=== PATIENT | male | born 1960 | race Caucasian/White ===

== ENCOUNTER → 2017-07-06 | Outpatient (CLI) | payer OTHER ==
--- NOTE | 2017-07-06 16:43 | DIAGNOSTIC IMAGING REPORT ---
RIGHT KNEE 1 OR 2 VIEWS ROUTINE CLINICAL HISTORY: Right knee pain. No recent trauma. COMPARISON: None FINDINGS: Alignment of the right knee is anatomic. There is moderate medial compartment joint space narrowing of the right knee. Irregularity of the tibial tubercle with calcific densities projecting over the distal patellar tendon is chronic. There is mild infrapatellar soft tissue swelling. No fracture or suspicious lesion is identified. There is a possible joint effusion. IMPRESSION: 1. No acute fracture. 2. Moderate medial compartment joint space narrowing of the right knee. 3. Possible right knee joint effusion, suboptimally assessed on this exam. 4. Mild infrapatellar soft tissue swelling and calcifications projecting over the distal patellar tendon which are chronic and may reflect old trauma or sequela of repetitive injury. Electronically signed by: Billy Vincent M.D. 07/06/2017 4:42 PM Dictated Date/Time: 07/06/2017 4:40 PM
== END | disposition home or self-care (01) ==
LOC: C.RAD 16:15
PROVIDERS: ATTEND Student in an Organized Health Care Education/Training Program
DX: M25.561 Pain in right knee (principal)

== ENCOUNTER 2019-06-30 21:52 | Inpatient (IN) ==
--- OUTSIDE RECORDS SUMMARY | 2019-06-30 21:55 | External Medical Summary | Continuity of Care Document ---
:1960 Author Name Keyshawn M.DIla Address Unavailable Unavailable , Care Team Providers Name Role Phone Unavailable Unavailable Unavailable PHIL, R Unavailable Unavailable Unavailable Unavailable Unavailable Problems Hypoxia (799.02) (R09.02) Fatigue (780.79) (R53.83) Obstructive sleep apnea (327.23) (G47.33) Obesity (278.00) (E66.9) Ureteral stone (592.1) (N20.1) Hypercholesterolemia (272.0) (E78.00) Chronic obstructive asthma (493.20) (J44.9) Testicular hypofunction (257.2) (E29.1) Kidney stone on left side (592.0) (N20.0) Allergies and Adverse Reactions No Known Drug Allergies (Allergy) Medications Medications not documented Procedures History of Bronchoscopy (Diagnostic) Sta tus: Completed History of Cystoscopy With Insertion Of Ureteral Stent Status: Completed Immunizations Immunizations not documented Family History Unknown Family Member Family history of Diabetes Mellitus (V18.0) Status: Active Comments: Family History Family history of Nephrolithiasis Status: Active Commen ts: Family History Family history of Lung Cancer (V16.1) Status: Active Co mments: Family History Social History - Smoking Status Former smoker Plan of Treatment Planned Observations Planned Goals not documented Results No Known Results Results not documented
[2019-06-30] MEDS ORDERED: ONDANSETRON INJ 2 MG/ML 2 ML VIAL IV STA (22:11)
[2019-06-30] MEDS ORDERED: KETOROLAC TROMETHAMINE 15 MG/ML VIAL IV STA (22:11)
[2019-06-30] MEDS ORDERED: SODIUM CHLORIDE 0.9% 500 ML IV SCH (22:15)
[2019-06-30 22:39] LABS: Basophils # (auto) 0.02 K/uL (0-0.2); Basophils % (auto) 0.3 %; Eosinophils # (auto) 0.14 K/uL (0-0.5); Hematocrit (blood only) 41.8 % (42-52); Hemoglobin 14.9 g/dL (14.0-18.0); Immature Granulocytes # (auto) 0.03 K/uL (0.00-0.02); Immature Granulocytes % (auto) 0.4 %; Lymphocytes # (auto) 2.17 K/uL (1.2-3.4); Lymphocytes % (auto) 31.7 %; Mean Corpuscular Hemoglobin 33.1 pg (25-34); Mean Corpuscular Hgb Conc 35.6 g/dL (32-36); Mean Corpuscular Volume 92.9 fL (80-100); Mean Platelet Volume 9.7 fL (7.4-10.4); Monocytes # (auto) 0.54 K/uL (0.11-0.59); Monocytes % (auto) 7.9 %; Neutrophils # (auto) 3.95 K/uL (1.4-6.5); Neutrophils % (auto) 57.7 %; Platelet Count 194 K/uL (130-400); RDW Coefficient of Variation 13.1 % (11.5-14.5); RDW Standard Deviation 44.6 fL (36.4-46.3); White Blood Count 6.85 K/uL (4.8-10.8)
[2019-06-30 22:44] LABS: Appearance Urine Clear (Clear); Bacteria Urine Automated Negative (Negative); Bilirubin Urine Negative (Negative); Blood Urine 2+ (Negative); Cast Urine Automated 0 /lpf (0-5); Color Urine Yellow; Epithelial Cell Urine Auto 0-5 /lpf (0-5); Glucose Urine UA Negative (Negative); Ketones Urine Negative (Negative); Leukocyte Esterase Urine Negative (Negative); Nitrite Urine Negative (Negative); Protein Urine Negative (Negative); RBC Urine Automated 0-4 /hpf (0-4); Specific Gravity Urine 1.022 (1.000-1.030); Urobilinogen Urine Negative (Negative); WBC Urine Automated 0 /hpf (0-5); pH Urine 5.5 (4.5-7.5)
[2019-06-30 23:16] LABS: Albumin Globulin Ratio 0.9 (0.9-2); Albumin Level 3.6 gm/dl (3.4-5.0); BUN Creatinine Ratio 19.2 (10-20); Bilirubin,Total 0.2 mg/dl (0.2-1); Creatinine Clr Calc Pharmacy 102.2 ml/min; Est GFR (African American) 87.4; Est GFR (Non-African American) 75.4; Potassium 3.7 mmol/L (3.5-5.1); Total Protein 7.6 gm/dl (6.4-8.2)
[2019-06-30] MEDS ORDERED: IOVERSOL 100ml IV PRN (23:28)
--- NOTE | 2019-06-30 23:56 | Emergency Department Note ---
History of Present Illness General Chief complaint: Abdominal Pain Stated complaint: BELLY ACHE ON LT SIDE Time Seen by Provider: 06/30/19 22:02 History of Present Illness Maximum Pain Intensity: 8 This 59-year-old presents to the ER complaining of left lower quadrant pain Location: Left lower quadrant Quality: Achy Severity: Moderate Duration: Tonight Timing: Symptoms started tonight Context: Patient was concerned and came in Modifying factors: better with nothing; worse with nothing Patient states he had kidney stones before but this feels different. Patient denies chest pain, dyspnea, fevers, vomiting, diarrhea, back pain, urinary symptoms, testicular pain or penile pain. Home Medications Home Medications Medication Instructions Recorded Confirmed Type ibuprofen [Advil] 400 mg PO QID PRN 06/30/19 06/30/19 History sertraline [Zoloft] 50 mg PO DAILY 06/30/19 06/30/19 History Allergies Allergy/AdvReac Type Severity Reaction Status Date / Time No Known Allergies Allergy Mild . Unverified 11/03/12 13:20 Past Med/Surg History Medical History Kidney stones Social History Feels Safe at Home: Yes Smoking Status: Former smoker Review of Systems All systems reviewed & are unremarkable except as noted in HPI & below Physical Exam Vital Signs Vital Signs - 24 hr 06/30/19 21:57 06/30/19 23:33 06/30/19 23:34 Temperature 36.8 C Temperature Source Oral Sepsis Recent Fever Within 48 Hours No Sepsis Action Taken by Nursing No Action Required Pulse Rate 88 Pulse Rate [Right Finger] 67 Pulse Rhythm [Right Finger] Pulse Strength [Right Finger] Respiratory Rate 20 20 Respiratory Effort / Characteristics Non-Labored Spontaneous Non-Labored Spontaneous Respiratory Depth Normal Normal Respiratory Pattern Regular Regular Blood Pressure 173/103 H Blood Pressure [Right Arm] 154/99 H Blood Pressure Mean 126 Blood Pressure Mean [Right Arm] 117 Blood Pressure Position Sitting Pulse Oximetry 94 95 98 Oxygen Delivery Method Room Air Room Air Room Air 07/01/19 01:31 Temperature Temperature Source Sepsis Recent Fever Within 48 Hours Sepsis Action Taken by Nursing Pulse Rate Pulse Rate [Right Finger] 60 Pulse Rhythm [Right Finger] Regular Pulse Strength [Right Finger] Normal Respiratory Rate 20 Respiratory Effort / Characteristics Non-Labored Spontaneous Respiratory Depth Normal Respiratory Pattern Blood Pressure Blood Pressure [Right Arm] 130/76 Blood Pressure Mean Blood Pressure Mean [Right Arm] 94 Blood Pressure Position Pulse Oximetry 95 Oxygen Delivery Method Room Air VITALS: Vitals are noted on the nurse's note and reviewed by myself. Vital signs reviewed. GENERAL: White male, in no acute distress, nondiaphoretic, well-developed well- nourished. SKIN: The skin was without rashes, erythema, edema, or bruising. There is no tenting of the skin. Capillary reflex less than 2 seconds. HEAD: Normocephalic atraumatic. EARS: External auditory canals clear, tympanic membranes pearly marino without erythema or effusion bilaterally. EYES: Pupils equal round and reactive to light and accommodation. Conjunctivae without injection, sclerae without icterus. Extraocular movements intact. NOSE: Patent, turbinates without inflammation or discharge. MOUTH: Mucous membranes moist. Pharynx without erythema or exudate. Uvula midline. Airway patent. Tongue does not deviate. NECK: Supple without nuchal rigidity. No lymphadenopathy. No thyromegaly. Cervical spine is nontender. No JVD. HEART: Regular rate and rhythm LUNGS: Clear to auscultation bilaterally without wheezes, rales or rhonchi. No retractions or accessory muscle use. ABDOMEN: Positive bowel sounds x 4. Normal tympanic percussion. Soft, tender to palpation left lower quadrant, without masses or organomegaly. Hurley sign negative. No guarding or rebound tenderness. No CVA tenderness MUSCULOSKELETAL: No muscle atrophy, erythema, or edema noted. NEURO: Patient was alert and oriented to person place and time. Normal sensation to light and sharp touch. No focal neurological deficits. Course Administered Medications Ioversol (Optiray 320 100ml) 93 ml IV ONCE PRN PRN Reason: Interaction Checking Stop: 07/04/19 23:27 Last Admin: 06/30/19 23:28 Dose: 93 ml Documented by: [id number] Discontinued Medications Sodium Chloride (Nss) 500 mls @ 999 mls/hr IV .Q31M MARKUS Stop: 06/30/19 22:45 Last Infusion: 06/30/19 23:27 Dose: 0 mls/hr Documented by: [id number] Admin: 06/30/19 22:34 Dose: 999 mls/hr Documented by: [id number] Ketorolac Tromethamine (Toradol) 10 mg IV NOW STA Stop: 06/30/19 22:12 Last Admin: 06/30/19 22:30 Dose: 10 mg Documented by: [id number] Morphine Sulfate (Morphine Sulfate) 4 mg IV NOW STA Stop: 07/01/19 01:16 Last Admin: 07/01/19 01:32 Dose: 4 mg Documented by: [id number] Ondansetron HCl (Zofran) 4 mg IV NOW STA Stop: 06/30/19 22:12 Last Admin: 06/30/19 22:30 Dose: 4 mg Documented by: [id number] Tamsulosin HCl (Flomax) 0.4 mg PO NOW ONE Stop: 07/01/19 01:16 Last Admin: 07/01/19 01:32 Dose: 0.4 mg Documented by: [id number] Medical Decision Making Medical Records Attestation: I reviewed the patient's medical records. Home Medications Current Medication List: was personally reviewed by me Laboratory Data Attestation: I reviewed the patient's lab results. Result diagrams: 06/30/19 22:31 06/30/19 22:31 Lab Results 06/30/19 06/30/19 06/30/19 Range/Units 22:31 22:31 22:31 WBC 6.85 (4.8-10.8) K/uL RBC 4.50 L (4.7-6.1) M/uL Hgb 14.9 (14.0-18.0) g/dL Hct 41.8 L (42-52) % MCV 92.9 (80-100) fL MCH 33.1 (25-34) pg MCHC 35.6 (32-36) g/dL RDW Std Deviation 44.6 (36.4-46.3) fL RDW Coeff of Giselle 13.1 (11.5-14.5) % Plt Count 194 (130-400) K/uL MPV 9.7 (7.4-10.4) fL Immature Gran % (Auto) 0.4 % Neut % (Auto) 57.7 % Lymph % (Auto) 31.7 % Avery % (Auto) 7.9 % Eos % (Auto) 2.0 % Baso % (Auto) 0.3 % Immature Gran # (Auto) 0.03 H (0.00-0.02) K/uL Neut # (Auto) 3.95 (1.4-6.5) K/uL Lymph # (Auto) 2.17 (1.2-3.4) K/uL Avery # (Auto) 0.54 (0.11-0.59) K/uL Eos # (Auto) 0.14 (0-0.5) K/uL Baso # (Auto) 0.02 (0-0.2) K/uL Sodium 141 (136-145) mmol/L Potassium 3.7 (3.5-5.1) mmol/L Chloride 109 H (98-107) mmol/L Carbon Dioxide 28 (21-32) mmol/L Anion Gap 4.0 (3-11) BUN 20 H (7-18) mg/dl Creatinine 1.06 (0.6-1.4) mg/dl Est Cr Clr Drug Dosing 102.2 ml/min Est GFR ( Amer) 87.4 Est GFR (Non-Af Amer) 75.4 BUN/Creatinine Ratio 19.2 (10-20) Glucose 123 H (70-99) mg/dl Calcium 9.0 (8.5-10.1) mg/dl Total Bilirubin 0.2 (0.2-1) mg/dl AST 19 (15-37) U/L ALT 27 (12-78) U/L Alkaline Phosphatase 115 (45-117) U/L Total Protein 7.6 (6.4-8.2) gm/dl Albumin 3.6 (3.4-5.0) gm/dl Globulin 4.0 (2.5-4.0) gm/dl Albumin/Globulin Ratio 0.9 (0.9-2) Lipase 204 (73-393) U/L Specimen Hemolysis Urine Color Yellow Urine Appearance Clear (Clear) Urine pH 5.5 (4.5-7.5) Ur Specific [place] 1.022 (1.000-1.030) Urine Protein Negative (Negative) Urine Glucose (UA) Negative (Negative) Urine Ketones Negative (Negative) Urine Blood 2+ H (Negative) Urine Nitrite Negative (Negative) Urine Bilirubin Negative (Negative) Urine Urobilinogen Negative (Negative) Ur Leukocyte Esterase Negative (Negative) Urine WBC (Auto) 0 (0-5) /hpf Urine RBC (Auto) 0-4 (0-4) /hpf U Hyaline Cast (Auto) 0 (0-5) /lpf U Epithel Cells (Auto) 0-5 (0-5) /lpf Urine Bacteria (Auto) Negative (Negative) Imaging Data Attestation: I personally reviewed and interpreted this imaging study as follows: MDM Narrative Prior records/ancillary studies reviewed. Triage Nursing notes reviewed. Additional history obtained from the family. The patient's history was concerning for left lower quadrant abdominal pain. Differential diagnosis: Etiologies such as renal colic, appendicitis, diverticulitis, mesenteric ischemia, aortic pathology, infections, inflammatory bowel disease, PUD, biliary pathology, UTI, as well as others were entertained. Physical examination findings: As above. ER treatment provided: Toradol, IV fluids On reassessment the patient felt better. Diagnostic interpretation by me: The labs revealed stable H&H. Urinalysis revealed hematuria. There was no sign of UTI. Imaging studies: CT ABDOMEN & PELVIS With Contrast: Nephrolithiasis with a 7 x 11 mm stone in the proximal left ureter. There is moderate left hydronephrosis and mild perinephric/periureteral stranding. Right inguinal hernia contains fat and a portion of thickened bladder with mild adjacent stranding. Small fat-containing left inguinal hernia also noted. Moderate stool in the colon. Mild rectosigmoid wall thickening likely related to underdistention. Fluid in the distal esophagus, query reflux. Bibasilar atelectasis/pneumonitis. Additional incidental findings. Radiologist: Magda Lopez M.D. Consultation: A consultation was placed with the surgeon, Dr. Flores and states there is nothing surgical to do for the hernia on the CAT scan as the patient is asymptomatic. She recommends outpatient follow-up. I consulted Dr. Blackmon, hospitalist. The case was discussed and diagnostics were reviewed. The patient was evaluated in the ER for further treatment. It appears that the patient has isolated renal colic from a left sided stone. Patient is still moderate amount of pain. Had a very large stone CAT scan. Medicine was consulted. The hernia was reviewed with surgery. They state this is not an emergent need and patient can follow-up outpatient. I reviewed this with the hospitalist. Patient is agreeable to treatment plan of admission. Patient was started on Flomax. He was medicated as above. No UTI. By the evaluation outlined above emergent etiologies such as appendicitis, diverticulitis, mesenteric ischemia, aortic pathology, infections, inflammatory bowel disease, PUD, biliary pathology, UTI, as well as others were deemed relatively unlikely. The pt informed about the findings as listed above. All questions were answered and pleased with the treatment Case reviewed with my attending The chart was completed utilizing [employer] Speech voice recognition software. Grammatical errors, random word insertions, pronoun errors, and incomplete sentences are an occassional consequence of this system due to software limitations, ambient noise, and hardware issues. Any formal questions or concerns about the content, text, or information contained within the body of this dictation should be directly addressed to the physician surgical assistant certified for clarification. Impression & Plan Renal colic on left side, Ureterolithiasis, Intractable pain Discharge Plan Visit Data Chief Complaint: Abdominal Pain Stated Complaint: BELLY ACHE ON LT SIDE ED Provider: [facility] Midlevel Provider: Susan Silva Discharge Problem: Renal colic on left side, Ureterolithiasis, Intractable pain Patient Disposition: Admitted As Inpatient Condition: Good Forms Stand Alone Forms: Call Back Authorization, [facility] Prescriptions Prescriptions: No Action ibuprofen [Advil] 200 mg Tablet 400 mg PO QID PRN (Reason: Pain) RF: 0 sertraline [Zoloft] 50 mg tablet 50 mg PO DAILY RF: 0 Referrals Referrals: Alfred Dominguez DO [Primary Care Provider] -
[2019-07-01] MEDS ORDERED: MoRPHine SULFATE 4 MG/ML 1 ML CARP\\VIAL IV STA (01:15)
[2019-07-01] MEDS ORDERED: TAMSULOSIN HCL 0.4 MG CAP PO ONE (01:15)
--- NOTE | 2019-07-01 02:12 | History & Physical Report ---
Date of Service July 01, 2019 Assessment & Plan (1) Ureterolithiasis: 59-year-old male with history of previous kidney stones, anxiety, depression, sleep apnea on BiPAP, hyperlipidemia presents with left mid abdominal pain which started tonight and progressively got worse. Found to have 7 x 11 mm stone proximal left ureter with moderate hydronephrosis. Ureterolithiasis with moderate hydronephrosis Afebrile, vitals within normal limits No WBC elevation CT abdomen pelvis: Nephrolithiasis 7 x 11 mm stone proximal left ureter, left moderate hydronephrosis and mild perinephric/periureteral stranding UA: 2+ blood BUN/creatinine 20/1 Received: Tramadol, Zofran, normal saline 500 cc, tamsulosin, morphine in the ED Started on Rocephin, tamsulosin, Toradol as needed, Tylenol as needed, IV fluids Urology consulted: Dr. Melara N.p.o. for possible procedure Incidental findings: Inguinal hernias CT abdomen: Right inguinal hernia, containing fat and portion of thickened bladder and mild adjacent stranding; small fat-containing left inguinal hernia Surgery consulted by ED provider who did not recommend any intervention History of ЮЛИЯ Patient uses BiPAP at night Does not have on BiPAP -ordered History of depression/anxiety Continue home Zoloft FEN/GI: No electrolyte abnormalities, n.p.o., LR 125 cc/h DVT prophylaxis: SCDs only encourage ambulation, chemical contraindicated pe nding possible procedure Code: Full per discussion with patient and Disposition: MedSurg (2) Anxiety: (3) History of nephrolithiasis: (4) ЮЛИЯ (obstructive sleep apnea): History of Present Illness Chief Complaint: Left mid abdominal pain Primary Care Provider: Alfred Dominguez DO 59-year-old male with history of previous kidney stones, anxiety, depression, sleep apnea on BiPAP, hyperlipidemia presents with left mid abdominal pain which started tonight and progressively got worse. Reports was driving home after grocery shopping when pain started. Pain described as crampy and was constant, 10 out of 10 until he received pain medication. Denies any fever, chills, nausea, vomiting, diarrhea, constipation, hematochezia, melena, dysuria, urine increased urinary frequency, hematuria, chest pain, shortness of breath, headache, lightheadedness. Last bowel movement was today normal. Of note: History of retrograde urethrogram and left urethral stent in 2012 per records Past surgical history: As above otherwise none Medications: Takes Zoloft Allergies: No known drug allergy Social history: Quit smoking 2003, smoked for 30 years half pack per day, denies alcohol or recreational drug use Family history: Father of massive stroke at age of 80, mother has dementia Allergies Allergy/AdvReac Type Severity Reaction Status Date / Time No Known Allergies Allergy Mild . Unverified 11/03/12 13:20 Home Medications Home Medications Medication Instructions Recorded Confirmed Type ibuprofen [Advil] 400 mg PO QID PRN 06/30/19 06/30/19 History sertraline [Zoloft] 50 mg PO DAILY 06/30/19 06/30/19 History Past Med/Surg History Medical History Kidney stones Social History Preferred Language: Ecuadorean Communication Ability: Effective Senior Research Associate Required: No Beliefs That Will Affect Care: None Current Living Situation: Spouse Feels Safe at Home: Yes Safety Concerns: Feels Safe At This Time Smoking Status: Never smoker Hx Alcohol Use: No Hx Substance Use: No Review of Systems Review of Systems: As per HPI Physical Exam Physical Exam: General: In NAD HEENT: dry oral mucosa Neuro: A&O x 4 Pulm: CTAB equal breath sounds bilaterally CV: RRR, no m/r/g Abdomen:+BS, no TTP in all quadrants, non-distended LE: no LE edema, no calf TTP Results & Data Vital Signs (Past 12 Hours) Vital Signs Temp Pulse Pulse Resp BP BP Pulse Ox 07/01/19 01:31 60 20 130/76 95 06/30/19 23:34 98 06/30/19 23:33 67 20 154/99 H 95 06/30/19 21:57 36.8 C 88 20 173/103 H 94 Laboratory Results Abnormal lab results 06/30/19 06/30/19 06/30/19 Range/Units 22:31 22:31 22:31 RBC 4.50 L (4.7-6.1) M/uL Hct 41.8 L (42-52) % Immature Gran # (Auto) 0.03 H (0.00-0.02) K/uL Chloride 109 H (98-107) mmol/L BUN 20 H (7-18) mg/dl Glucose 123 H (70-99) mg/dl Urine Blood 2+ H (Negative) Medications Administered Current Inpatient Medications Ioversol (Optiray 320 100ml) 93 ml IV ONCE PRN PRN Reason: Interaction Checking Stop: 07/04/19 23:27 Last Admin: 06/30/19 23:28 Dose: 93 ml Documented by: Code Status & VTE Plan Code Status Full VTE Prophylaxis Plan VTE Prophylaxis will be ordered: Yes Supervising Physician Co-Signing Physician Notes Patient seen and examined, chart reviewed, case discussed with Dr. Andrade and I agree with her assessment and plan as documented above. Briefly patient is a 59-year-old male with prior history of renal stones presenting with the same. He has a 7 x 11 mm stone in the proximal left ureter. Pain is well controlled at present. No evidence of UTI On physical exam he is afebrile, hemodynamically stable, no acute distress Some left CVA tenderness Exam otherwise unremarkable Labs and images reviewed. UA with 2+ blood Assessment/plan: 59-year-old male with renal stone Admit to medical floor. IV fluids, Flomax, pain and nausea control Urology consultassistance appreciated Monitor for evidence of hernia incarceration. Consider surgical referral on discharge. Remainder of plan as above PG Care Time/CCT Total # of Minutes Spent Total Time Spent with Patient: Total time spent is greater than 50% in coordination of care (as documented) at patient's floor/unit and/or counseling patient: Resident Activity Tracking Resident Involvement: Resident Care Provided Care Provided: Adult Hospital Medicine
[2019-07-01] MEDS ORDERED: ONDANSETRON INJ 2 MG/ML 2 ML VIAL IV PRN (03:00)
[2019-07-01] MEDS ORDERED: LACTATED RINGER'S 1,000 ML IV SCH (03:00)
[2019-07-01] MEDS ORDERED: KETOROLAC 30 MG/ML VIAL IV PRN (03:00)
[2019-07-01] MEDS ORDERED: SERTRALINE HCL 50 MG TABLET PO SCH (03:00)
[2019-07-01] MEDS ORDERED: ACETAMINOPHEN 325 MG TAB PO PRN (03:00)
[2019-07-01] MEDS ORDERED: POLYETHYLENE (MIRALAX) 17 GM PACK PO PRN (03:00)
[2019-07-01] MEDS ORDERED: cefTRIAXone SODIUM 2,000 MG in DEXTROSE 5% 50 ML IV SCH (03:00)
[2019-07-01] MEDS ORDERED: ALUMINUM/MAGNESIUM SUSP 30 ML UDC PO STA (06:13)
--- NOTE | 2019-07-01 07:23 | CT Scan Report ---
ABDOMEN AND PELVIS CT WITH IV CONTRAST CT DOSE: 1716.38 mGy.cm HISTORY: Left lower quadrant abdominal pain. TECHNIQUE: Multiaxial CT images of the abdomen and pelvis were performed following the use of intrave nous contrast. A dose lowering technique was utilized adhering to the principles of ALARA. COMPARISON STUDY: Abdomen and pelvis CT 11/01/2012. FINDINGS: Left basilar linear densities favor subsegmental atelectasis. No pneumoperitoneum. No pneum atosis. No suspicious lytic or blastic osseous lesions. The liver, gallbladder, pancreas, adrenal gla nds, and right kidney are unremarkable. No retroperitoneal lymphadenopathy. There is a 9 mm stone wit hin the lower pole the left kidney. Mild left hydronephrosis secondary to an obstructing 1 cm stone a t the left ureteropelvic junction. Mild thickening within the right anterior bladder wall which remai ns unchanged. The right anterior bladder is located within the right-sided inguinal hernia. There is a small fat-containing left inguinal hernia. No bowel wall thickening or obstruction. IMPRESSION: 1. A 1 cm obstructing stone within the left ureteropelvic junction resulting in mild left hydronephro sis. 2. Left-sided nephrolithiasis. 3. Thickening of the right anterior bladder which is similar to the prior study. This is located with in the right-sided inguinal hernia. There is also small fat-containing left inguinal hernia. Electronically signed by: Yasmany Villa M.D. 07/01/2019 7:22 AM
[2019-07-01] MEDS ORDERED: TAMSULOSIN HCL 0.4 MG CAP PO SCH (09:00)
[2019-07-01 09:07] LABS: Hematocrit (blood only) 41.8 % (42-52); Hemoglobin 14.5 g/dL (14.0-18.0); Mean Corpuscular Hemoglobin 32.4 pg (25-34); Mean Corpuscular Hgb Conc 34.7 g/dL (32-36); Mean Corpuscular Volume 93.3 fL (80-100); Mean Platelet Volume 9.4 fL (7.4-10.4); Platelet Count 183 K/uL (130-400); RDW Coefficient of Variation 13.1 % (11.5-14.5); RDW Standard Deviation 44.7 fL (36.4-46.3); Red Blood Count 4.48 M/uL (4.7-6.1); White Blood Count 6.73 K/uL (4.8-10.8)
[2019-07-01 09:26] LABS: INR 1.1 (0.9-1.1); Prothrombin Time 11.2 Seconds (9.0-12.0)
[2019-07-01 09:48] LABS: BUN Creatinine Ratio 19.1 (10-20); Calcium 8.9 mg/dl (8.5-10.1); Creatinine Clr Calc Pharmacy 120.4 ml/min; Est GFR (African American) 106.5; Est GFR (Non-African American) 91.9; Potassium 3.9 mmol/L (3.5-5.1)
--- NOTE | 2019-07-01 10:19 | Urology Consultation ---
Date of Consultation July 01, 2019 Assessment & Plan (1) History of nephrolithiasis: (2) Renal colic on left side: A/P 59-year-old male with resolved colic from the left 1 cm ureteropelvic junction stone. Findings reviewed with patient. I suspect his stone has fallen back into the kidney causing abrupt resolution of his colicky pain. We will check a KUB today as well as preoperative chest x-ray and EKG. No recent PSAs notedwe will also check. Seen the size of his stones I suspect that intervention will be required to allow for passage. We will therefore plan on semi-urgent outpatient shockwave lithotripsy to avoid the need for stent placement. Risks and benefits of various forms of management are reviewed, but if the patient is currently asymptomatic would avoid any acute intervention. Patient vocalizes good understanding of the treatment plan. He is to avoid blood thinners or aspirin products until we can arrange for intervention. Will arrange for outpatient follow-up this coming week with possible prompt lithotripsy depending on logistics. Thank you for allowing us to participate in this patient's acute care. Please contact our service with any questions or concerns. Patient should be stable for discharge home later today if he tolerates a p.o. diet and remains asymptomatic. History of Present Illness Reason for Consultation: Left renal stones. Attending Physician: Smita Andres MD History of Present Illness Patient is a pleasant 59-year-old male who I have last seen 6 years ago for left renal stones. He was lost to follow-up at this time after having undergone a lithotripsy with stone fragmentation. He returns for presentation via the emergency room due to recurrent colic on the left-hand side. He has had a CT scan done and the images were personally reviewed. This demonstrates 2 large stones in the left kidney with one at the left ureteropelvic junction, approximately 1 cm in size. He reports that after receiving pain medication in the emergency room his pain resolved completely and has not returned. He is in good spirits this morning. He has not been followed by urology otherwise and is participating in no active stone prevention. Urology consultation is requested for assistance with his inpatient care. Creatinine noted to be within normal limits without other worrisome laboratory findings. Patient has had a ureteral stent in the past which he reports having tolerated well. Allergies Allergy/AdvReac Type Severity Reaction Status Date / Time No Known Allergies Allergy Mild . Unverified 11/03/12 13:20 Home Medications Home Medications Medication Instructions Recorded Confirmed Type ibuprofen [Advil] 400 mg PO QID PRN 06/30/19 06/30/19 History sertraline [Zoloft] 50 mg PO DAILY 06/30/19 06/30/19 History Patient History Medical History Kidney stones Sleep apnea Surgical History H/O lithotripsy H/O lithotripsy S/P ureteral stent placement Status post laser lithotripsy of ureteral calculus Social History Preferred Language: Greenlandic Communication Ability: Effective Toe Laster Required: No Beliefs That Will Affect Care: None Current Living Situation: Spouse Feels Safe at Home: Yes Safety Concerns: Feels Safe At This Time Smoking Status: Never smoker Hx Alcohol Use: No Hx Substance Use: No Review of Systems Constitutional: no fever and no chills Eyes: no diplopia Ear, Nose, Mouth, Throat: no ear trauma Respiratory: no hemoptysis Cardiovascular: no chest pain Gastrointestinal: no constipation Genitourinary: + flank pain (resolved) Integumentary: no acne and no boil Neurologic: no paralysis Psychiatric: no hopelessness Hematologic / Lymphatic: no lymphadenopathy Allergy / Immunological: no tongue swelling Physical Exam Constitutional: well developed and well nourished; no acute distress Eyes: eyes not dysmorphic ENMT: Ears: no external ear abnormality Neck: trachea midline; no anterior neck swelling Respiratory: no respiratory distress and does not use accessory muscles Cardiovascular: Vessels: radial pulses present Gastrointestinal (Abdomen): Inspection/Auscultation: abdomen not distended Percussion/Palpation: abdomen soft; abdomen nontender Musculoskeletal: Head/Neck/Chest: normocephalic and neck supple Skin: normal turgor Neurologic: awake; not obtunded Psychiatric: Orientation: oriented x 3 Lymphatic: no lymphadenopathy Results & Data Vital Signs (Past 12 Hours) Vital Signs Temp Pulse Pulse Resp BP Pulse Ox 07/01/19 07:09 36.3 C L 61 16 138/76 95 07/01/19 03:17 94 H 18 98 07/01/19 02:50 36.3 C L 54 L 16 137/81 98 07/01/19 02:32 58 L 20 134/78 95 07/01/19 01:31 60 20 130/76 95 06/30/19 23:34 98 06/30/19 23:33 67 20 154/99 H 95 Laboratory Results Laboratory Results - last 48 hr 06/30/19 06/30/19 06/30/19 22:31 22:31 22:31 WBC 6.85 RBC 4.50 L Hgb 14.9 Hct 41.8 L MCV 92.9 MCH 33.1 MCHC 35.6 RDW Std Deviation 44.6 RDW Coeff of Giselle 13.1 Plt Count 194 MPV 9.7 Immature Gran % (Auto) 0.4 Neut % (Auto) 57.7 Lymph % (Auto) 31.7 Bonner % (Auto) 7.9 Eos % (Auto) 2.0 Baso % (Auto) 0.3 Immature Gran # (Auto) 0.03 H Neut # (Auto) 3.95 Lymph # (Auto) 2.17 Bonner # (Auto) 0.54 Eos # (Auto) 0.14 Baso # (Auto) 0.02 PT INR Sodium 141 Potassium 3.7 Chloride 109 H Carbon Dioxide 28 Anion Gap 4.0 BUN 20 H Creatinine 1.06 Est Cr Clr Drug Dosing 102.2 Est GFR ( Amer) 87.4 Est GFR (Non-Af Amer) 75.4 BUN/Creatinine Ratio 19.2 Glucose 123 H Calcium 9.0 Total Bilirubin 0.2 AST 19 ALT 27 Alkaline Phosphatase 115 Total Protein 7.6 Albumin 3.6 Globulin 4.0 Albumin/Globulin Ratio 0.9 Lipase 204 Specimen Hemolysis Urine Color Yellow Urine Appearance Clear Urine pH 5.5 Ur Specific Billings 1.022 Urine Protein Negative Urine Glucose (UA) Negative Urine Ketones Negative Urine Blood 2+ H Urine Nitrite Negative Urine Bilirubin Negative Urine Urobilinogen Negative Ur Leukocyte Esterase Negative Urine WBC (Auto) 0 Urine RBC (Auto) 0-4 U Hyaline Cast (Auto) 0 U Epithel Cells (Auto) 0-5 Urine Bacteria (Auto) Negative 07/01/19 07/01/19 07/01/19 08:55 08:55 08:55 WBC 6.73 RBC 4.48 L Hgb 14.5 Hct 41.8 L MCV 93.3 MCH 32.4 MCHC 34.7 RDW Std Deviation 44.7 RDW Coeff of Giselle 13.1 Plt Count 183 MPV 9.4 Immature Gran % (Auto) Neut % (Auto) Lymph % (Auto) Bonner % (Auto) Eos % (Auto) Baso % (Auto) Immature Gran # (Auto) Neut # (Auto) Lymph # (Auto) Bonner # (Auto) Eos # (Auto) Baso # (Auto) PT 11.2 INR 1.1 Sodium 142 Potassium 3.9 Chloride 109 H Carbon Dioxide 27 Anion Gap 6.0 BUN 17 Creatinine 0.90 Est Cr Clr Drug Dosing 120.4 Est GFR ( Amer) 106.5 Est GFR (Non-Af Amer) 91.9 BUN/Creatinine Ratio 19.1 Glucose 98 Calcium 8.9 Total Bilirubin AST ALT Alkaline Phosphatase Total Protein Albumin Globulin Albumin/Globulin Ratio Lipase Specimen Hemolysis Urine Color Urine Appearance Urine pH Ur Specific Billings Urine Protein Urine Glucose (UA) Urine Ketones Urine Blood Urine Nitrite Urine Bilirubin Urine Urobilinogen Ur Leukocyte Esterase Urine WBC (Auto) Urine RBC (Auto) U Hyaline Cast (Auto) U Epithel Cells (Auto) Urine Bacteria (Auto) PG Care Time/CCT Total # of Minutes Spent Total Time Spent with Patient: Total time spent is greater than 50% in coordination of care (as documented) at patient's floor/unit and/or counseling patient:
--- NOTE | 2019-07-01 11:38 | XRay Report ---
KUB HISTORY: Preop. stone COMPARISON: Abdomen and pelvis CT 06/30/2019. FINDINGS: The bowel gas pattern is unremarkable. There are no dilated loops of small bowel to suggest an obstruction. There are 2 adjacent stones within the lower pole the left kidney with the largest measuring 1 cm. No ureteral stones identified. No right renal calculi. No bladder calculi are present . No pneumoperitoneum or pneumatosis. IMPRESSION: 1. Left-sided nephrolithiasis. No ureteral calculi. 2. The 1 cm stone within the left ureteropelvic junction seen the prior study now resides within the lower pole of the left kidney. Electronically signed by: Yasmany Villa M.D. 07/01/2019 11:37 AM
--- NOTE | 2019-07-01 11:39 | XRay Report ---
XR chest 2V routine HISTORY: preop COMPARISON: Chest 11/01/2012. FINDINGS: No pneumothorax. No pleural effusions. Mild diffuse interstitial thickening which appears c hronic. No new focal lung consolidations to suggest pneumonia. No evidence for pulmonary edema. The h eart remains borderline enlarged. Mildly tortuous thoracic aorta. IMPRESSION: Mild chronic interstitial thickening, unchanged. No acute process within the chest. Electronically signed by: Yasmany Villa M.D. 07/01/2019 11:38 AM
--- NOTE | 2019-07-01 15:47 | Discharge Summary ---
Date of Service July 01, 2019 Admission HPI Per Admitting Provider 59-year-old male with history of previous kidney stones, anxiety, depression, sleep apnea on BiPAP, hyperlipidemia presents with left mid abdominal pain which started tonight and progressively got worse. Reports was driving home after grocery shopping when pain started. Pain described as crampy and was constant, 10 out of 10 until he received pain medication. Denies any fever, chills, nausea, vomiting, diarrhea, constipation, hematochezia, melena, dysuria, urine increased urinary frequency, hematuria, chest pain, shortness of breath, headache, lightheadedness. Last bowel movement was today normal. Of note: History of retrograde urethrogram and left urethral stent in 2013 per records Past surgical history: As above otherwise none Medications: Takes Zoloft Allergies: No known drug allergy Social history: Quit smoking 2003, smoked for 30 years half pack per day, denies alcohol or recreational drug use Family history: Father of massive stroke at age of 80, mother has dementia Admission Exam Per Admitting Provider General: In NAD HEENT: dry oral mucosa Neuro: A&O x 4 Pulm: CTAB equal breath sounds bilaterally CV: RRR, no m/r/g Abdomen:+BS, no TTP in all quadrants, non-distended LE: no LE edema, no calf TTP Principal Diagnosis Left Ureter Stone, Left Hydronephrosis Discharge Exam General: Resting comfortably HEENT: NC/AT; PERRLA with EOMI; [place] conjunctiva, MMM. No erythema of posterior pharynx Neck: Supple and nontender Cardiac: RRR Lungs: CTA bilaterally Abdomen: Bowel normoactive X 4; Nontender to palpation Extremities: Warm. No edema present Neuro: No focal weakness Skin: No rash Discharge Data Allergies Allergy/AdvReac Type Severity Reaction Status Date / Time No Known Allergies Allergy Mild . Verified 07/06/19 06:36 Consultations 07/01/19 01:16 ED Decision to Admit Stat 07/01/19 03:00 Consult Urology Routine Ordered Studies 06/30/19 22:11 CT abd pelvis IV con only Urgent 07/01/19 KUB and CXR Hospital Course (1) Ureterolithiasis: 1 cm obstructing stone within left UPJ with mild left hydronephrosis on admission noted of CT A/P. KUB also showed 1 cm stone, now within lower pole of left kidney. Pt. had resolution of pain with Toradol IV; stone also likely passed to kidney leading to resolution of pain. Urology consulted, will discharge and plan for follow up this week for lithotripsy. Pt. will need to return to the ER for increased pain, fever/chills, severe N/V, etc and require inpt procedure. Prescriptions were provided for Flomax, Tramadol at discharge. U/a negative; no indication for abx coverage. (2) Anxiety: Continued home SSRI. (3) History of nephrolithiasis: See above (4) ЮЛИЯ (obstructive sleep apnea): BiPAP qhs. Pt. was stable for discharge to home on 07/01/19. Total Time Total Time Spent Total Time Spent (In Minutes): >30 minutes Total Time Includes: Examination of the Patient, Discharge Planning, Medication Reconciliation, Communication With Other Providers and Other Discharge Plan Discharge Items Patient Disposition: Home - Self-Care Reason For Visit: L UERETERAL CALCULUS AND HYDRONEPHROSIS Discharge Diagnosis: Left Ureter Calculus, Left Hydronephrosis Condition: Good Discharge Goals: Decrease discomfort, Improve disease control, Improve function, Increase independence, Prevent disease and Therapeutic intervention Activity: As commented below Exercise/Sports: Wait until after follow-up appointment Non-emergency contact: Primary Care Provider and Urologist Call non-emergency contact if: you have any medication questions, your symptoms worsen, your pain is not controlled, your pain is worsening, your pain is unusual for you, your pain is concerning for you, you have a fever and your temperature is above 101 Follow-up/Referrals: Alfred Dominguez, [Primary Care Provider] - Diet: Regular Addtl Provider Instructions: 1. Left sided kidney stone * Please take Flomax 0.4 mg daily at home. * Pain control as follows: - Tylenol 650 mg every 4-6 hours for mild pain. - Tramadol 50 mg every 6 hours for moderate to severe pain. * An urgent outpatient follow up will be scheduled with urology for shock wave lithotripsy/stone removal. * Avoid NSAIDs (Ibuprofen, Aleve, Advil, Motrin, etc) and Aspirin at home due to upcoming procedure. * Please call urologist or go to the ER if you develop the following: fever or chills, increased left flank/abdominal pain, severe nausea/vomiting. Prescriptions: New tramadol 50 mg tablet 50 mg PO Q6H PRN (Reason: pain) Qty: 12 RF: 0 Continued sertraline [Zoloft] 50 mg tablet 100 mg PO HS RF: 0 Discontinued ibuprofen [Advil] 200 mg Tablet 400 mg PO QID PRN (Reason: Pain) RF: 0 No Action hydrocodone-acetaminophen 5-325 mg tablet 1 tab PO QID PRN (Reason: pain) Qty: 15 RF: 0 tamsulosin 0.4 mg capsule 0.4 mg PO DAILY Qty: 10 RF: 0 Stand-Alone Forms: Call Back Authorization, My [facility]/Other Patient Handouts: Lithotripsy Shock Wave, Kidney Stones Risk, Kidney Stones Identify, Kidney Stones Prevent Discharge Orders: Discharge Order (Routine); Ordered 07/01/19 Ordered By: Smita Andres Admission Data Admit Date/Time: 07/01/19 02:04 Attending Provider: Smita Andres Admit Provider: Zulema Blackmon Primary Care Provider: Alfred Dominguez Other Providers: Mati Melara I. Service: Surgical Services Other Interventions: Discharge Summary Assessment (RN) Last Done: 07/01/19 13:03 Pending Studies at Discharge: No DC Date/Time DO NOT enter until pt leaves facility: 07/01/19 13:30 Supervising Physician Co-Signing Physician Notes PA Supervision Note: I personally saw and examined the patient. I verified all christina points and agree with DORA Wilson with the following exceptions and/or additions: DOing well, no pain, stone returned to kidney STable for dc to home with close Urology f/u for stone management General: Resting comfortably HEENT: NC/AT; PERRLA with EOMI; Ballplay conjunctiva, MMM. No erythema of posterior pharynx Neck: Supple and nontender Cardiac: RRR Lungs: CTA bilaterally Abdomen: Bowel normoactive X 4; Nontender to palpation Extremities: Warm. No edema present Neuro: No focal weakness Skin: No rash
== END 2019-07-01 13:30 | disposition home or self-care (01) | DRG 694 ==
LOC: ED 21:52 → SUATTDRO 07-01 02:04 → 3W 07-01 02:04
DX: N13.2 Hydronephrosis with renal and ureteral calculous obstruction; F41.9 Anxiety disorder, unspecified; N13.0 Hydronephrosis with ureteropelvic junction obstruction; G47.33 Obstructive sleep apnea (adult) (pediatric); Z99.89 Dependence on other enabling machines and devices; Z79.899 Other long term (current) drug therapy; F32.9 Major depressive disorder, single episode, unspecified; Z87.891 Personal history of nicotine dependence

== ENCOUNTER 2021-04-06 13:37 | Observation (INO) ==
--- NOTE | 2021-04-06 15:04 | Emergency Department Note ---
History of Present Illness General Chief complaint: Abdominal Pain Stated complaint: REFERRED BY MD, ABDOMINAL PAIN Time Seen by Provider: 04/06/21 14:05 History of Present Illness This is a 60-year-old male that presents to emergency department via private vehicle with complaints of "abdominal pain". The patient notes that around 3-4 AM he awoke from sleep today and notes that he felt a "sickness" in his abdomen. He then could not fall asleep for about 1 hour and then was able to fall asleep. He then awoke around 7 AM and notes that he had some abdominal pain just superior to the umbilicus. He also notes he has been experiencing intermittent protrusion/"bulge" from that region intermittently over the past 6 months. He is unsure whether or not the protrusion was present during the pain that he had that awoke him from sleep earlier today. He denies any pain at this current time. He denies any fevers, chills, nausea, vomiting or diarrhea. He does note a decreased appetite. He notes a history of kidney stones. No medicinal allergies. No history of abdominal surgeries. Home Medications Medication Instructions Recorded Confirmed Type sertraline [Zoloft] 100 mg PO HS 06/30/19 04/06/21 History meloxicam 7.5 mg tablet 7.5 mg PO BID PRN #20 tab 03/13/20 04/06/21 Rx buspirone 10 mg PO BID 04/06/21 04/06/21 History Allergies Allergy/AdvReac Type Severity Reaction Status Date / Time No Known Allergies Allergy Mild . Verified 04/06/21 16:34 Past Med/Surg History Medical History (Updated 04/06/21 @ 18:34 by Charly Boyle PA-C) Anxiety Kidney stones Sleep apnea bipap nightly Surgical History H/O lithotripsy History of colonoscopy S/P ureteral stent placement hx Status post laser lithotripsy of ureteral calculus Family History Uncle Family history of diabetes mellitus Father FHx: stroke, Onset Age: 80 Social History Smoking Status: Former smoker Cigarettes Per Day: 1 ppd x30 years; Second Hand Exposure: No; Hx Alcohol Use: No Hx Substance Use: No Preferred Language: Tamazight Communication Ability: Effective Staff Radiation Therapist Required: No Beliefs That Will Affect Care: None Current Living Situation: Spouse and Family Feels Safe at Home: Yes Assistive Devices: BiPap and Glasses Review of Systems A total of 10 systems reviewed and were otherwise negative Physical Exam Vital Signs Vital Signs - 24 hr 04/06/21 13:43 04/06/21 14:59 04/06/21 15:01 Temperature 36.5 C Temperature Source Temporal Artery Scan Pulse Rate 110 H 101 H Pulse Rate [Left Apical] 98 H Pulse Rate from SpO2 Sensor 101 H Pulse Rhythm Regular Pulse Rhythm [Left Apical] Regular Pulse Strength Normal Pulse Strength [Left Apical] Normal Respiratory Rate 20 24 16 Respiratory Effort / Characteristics Non-Labored Spontaneous Non-Labored Spontaneous Respiratory Depth Normal Normal Respiratory Pattern Regular Regular Blood Pressure 120/79 Blood Pressure [Left Arm] 120/79 Blood Pressure Mean 92 Blood Pressure Mean [Left Arm] 92 Blood Pressure Position [Left Arm] Lying Pulse Oximetry 95 91 93 Oxygen Delivery Method Room Air Room Air Sepsis Recent Fever Within 48 Hours No Sepsis New/Unexplained Change in Mental Status No Sepsis Action Taken by Nursing No Action Required 04/06/21 15:30 04/06/21 16:00 04/06/21 17:00 Temperature Temperature Source Pulse Rate 98 H 96 H Pulse Rate [Left Apical] Pulse Rate from SpO2 Sensor 99 H 96 H 90 Pulse Rhythm Pulse Rhythm [Left Apical] Pulse Strength Pulse Strength [Left Apical] Respiratory Rate 21 22 Respiratory Effort / Characteristics Respiratory Depth Respiratory Pattern Blood Pressure 117/86 121/76 125/72 Blood Pressure [Left Arm] Blood Pressure Mean 96 91 89 Blood Pressure Mean [Left Arm] Blood Pressure Position [Left Arm] Pulse Oximetry 94 94 96 Oxygen Delivery Method Sepsis Recent Fever Within 48 Hours Sepsis New/Unexplained Change in Mental Status Sepsis Action Taken by Nursing 04/06/21 17:30 Temperature Temperature Source Pulse Rate Pulse Rate [Left Apical] Pulse Rate from SpO2 Sensor 90 Pulse Rhythm Pulse Rhythm [Left Apical] Pulse Strength Pulse Strength [Left Apical] Respiratory Rate Respiratory Effort / Characteristics Respiratory Depth Respiratory Pattern Blood Pressure 136/82 Blood Pressure [Left Arm] Blood Pressure Mean 100 Blood Pressure Mean [Left Arm] Blood Pressure Position [Left Arm] Pulse Oximetry 96 Oxygen Delivery Method Sepsis Recent Fever Within 48 Hours Sepsis New/Unexplained Change in Mental Status Sepsis Action Taken by Nursing VITAL SIGNS - Vital signs and nursing notes were reviewed. Stable and afebrile. GENERAL -60-year-old male appearing his stated age who is in no acute distress. Communicates well with provider and answers questions appropriately. SKIN - Without rashes. No meningeal or petechial rash. The skin overlying the abdomen is unremarkable. HEAD - NC/AT. EYES - PERRL with EOMI bilaterally. Sclera anicteric. NECK - Neck with FROM. No nuchal rigidity. LUNGS - Chest wall symmetric without accessory muscle use, intercostals retr actions, or central cyanosis. Normal vesicular breath sounds CTA B/L. No wheezes, rales, or rhonchi appreciated. CARDIAC - RRR with S1/S2. No murmur, rubs, or gallops appreciated. ABDOMEN - Abdominal contour normal without pulsations or visible masses. BS normoactive all four quadrants. No tenderness, palpable masses, hepatosplenomegaly, or ascites noted. When the patient attempts to actively sit up and flexes the abdominal musculature there is a protrusion noted in the ventral region of the abdomen just superior to the umbilicus consistent with hernia. This then reduces when the patient is supine and relaxes. EXTREMITIES - No clubbing or peripheral cyanosis. +5/5 strength noted in UE/LE bilaterally. NEUROLOGIC - Cranial nerves II through XII grossly intact. PSYCH - A&Ox3 and cooperates fully with examiner. Pt is very pleasant and interacts well with examiner. Course Administered Medications Discontinued Medications Ioversol (Optiray 320 100ml) 90 ml IV ONCE ONE Stop: 04/06/21 16:09 Last Admin: 04/06/21 16:08 Dose: 1 ml Documented by: [id number] Medical Decision Making Laboratory Data Result diagrams: 04/06/21 14:59 04/06/21 14:59 Lab Results 04/06/21 04/06/21 04/06/21 Range/Units 14:59 14:59 14:59 WBC 18.30 H (4.8-10.8) K/uL RBC 4.75 (4.7-6.1) M/uL Hgb 15.9 (14.0-18.0) g/dL Hct 45.2 (42-52) % MCV 95.2 (80-100) fL MCH 33.5 (25-34) pg MCHC 35.2 (32-36) g/dL RDW Std Deviation 46.1 (36.4-46.3) fL RDW Coeff of Giselle 13.3 (11.5-14.5) % Plt Count 236 (130-400) K/uL MPV 9.9 (7.4-10.4) fL Immature Gran % (Auto) 0.5 % Neut % (Auto) 80.4 % Lymph % (Auto) 11.9 % Catron % (Auto) 6.6 % Eos % (Auto) 0.4 % Baso % (Auto) 0.2 % Neut # (Auto) 14.70 H (1.4-6.5) K/uL Lymph # (Auto) 2.18 (1.2-3.4) K/uL Catron # (Auto) 1.21 H (0.11-0.59) K/uL Eos # (Auto) 0.08 (0-0.5) K/uL Baso # (Auto) 0.04 (0-0.2) K/uL Immature Gran # (Auto) 0.09 H (0.00-0.02) K/uL Sodium 138 (136-145) mmol/L Potassium 3.9 (3.5-5.1) mmol/L Chloride 104 (98-107) mmol/L Carbon Dioxide 26 (21-32) mmol/L Anion Gap 8.0 (3-11) BUN 14 (7-18) mg/dl Creatinine 0.98 (0.6-1.4) mg/dl Est Cr Clr Drug Dosing Not Reportable Est GFR ( Amer) 95.4 ml/min Est GFR (Non-Af Amer) 82.3 ml/min BUN/Creatinine Ratio 14.5 (10-20) Glucose 90 (70-99) mg/dl Lactate 1.8 (0.4-2.0) mmol/L Calcium 9.3 (8.5-10.1) mg/dl Total Bilirubin 0.5 (0.2-1) mg/dl AST 17 (15-37) U/L ALT 32 (12-78) U/L Alkaline Phosphatase 109 (45-117) U/L Troponin I < 0.015 (0-0.045) ng/ml Total Protein 8.5 H (6.4-8.2) gm/dl Albumin 4.0 (3.4-5.0) gm/dl Globulin 4.5 H (2.5-4.0) gm/dl Albumin/Globulin Ratio 0.9 (0.9-2) Lipase 121 (73-393) U/L Urine Color Urine Appearance (Clear) Urine pH (4.5-7.5) Ur Specific [place] (1.000-1.030) Urine Protein (Negative) Urine Glucose (UA) (Negative) Urine Ketones (Negative) Urine Blood (Negative) Urine Nitrite (Negative) Urine Bilirubin (Negative) Urine Urobilinogen (Negative) Ur Leukocyte Esterase (Negative) Urine WBC (Auto) (0-5) /hpf Urine RBC (Auto) (0-4) /hpf U Hyaline Cast (Auto) (0-5) /lpf U Epithel Cells (Auto) (0-5) /lpf Urine Bacteria (Auto) (Negative) COVID-19 Eval Order 04/06/21 04/06/21 Range/Units 15:00 17:19 WBC (4.8-10.8) K/uL RBC (4.7-6.1) M/uL Hgb (14.0-18.0) g/dL Hct (42-52) % MCV (80-100) fL MCH (25-34) pg MCHC (32-36) g/dL RDW Std Deviation (36.4-46.3) fL RDW Coeff of Giselle (11.5-14.5) % Plt Count (130-400) K/uL MPV (7.4-10.4) fL Immature Gran % (Auto) % Neut % (Auto) % Lymph % (Auto) % Catron % (Auto) % Eos % (Auto) % Baso % (Auto) % Neut # (Auto) (1.4-6.5) K/uL Lymph # (Auto) (1.2-3.4) K/uL [place] # (Auto) (0.11-0.59) K/uL Eos # (Auto) (0-0.5) K/uL Baso # (Auto) (0-0.2) K/uL Immature Gran # (Auto) (0.00-0.02) K/uL Sodium (136-145) mmol/L Potassium (3.5-5.1) mmol/L Chloride (98-107) mmol/L Carbon Dioxide (21-32) mmol/L Anion Gap (3-11) BUN (7-18) mg/dl Creatinine (0.6-1.4) mg/dl Est Cr Clr Drug Dosing Est GFR ( Amer) ml/min Est GFR (Non-Af Amer) ml/min BUN/Creatinine Ratio (10-20) Glucose (70-99) mg/dl Lactate (0.4-2.0) mmol/L Calcium (8.5-10.1) mg/dl Total Bilirubin (0.2-1) mg/dl AST (15-37) U/L ALT (12-78) U/L Alkaline Phosphatase (45-117) U/L Troponin I (0-0.045) ng/ml Total Protein (6.4-8.2) gm/dl Albumin (3.4-5.0) gm/dl Globulin (2.5-4.0) gm/dl Albumin/Globulin Ratio (0.9-2) Lipase (73-393) U/L Urine Color Yellow Urine Appearance Clear (Clear) Urine pH 7.0 (4.5-7.5) Ur Specific [place] 1.014 (1.000-1.030) Urine Protein Negative (Negative) Urine Glucose (UA) Negative (Negative) Urine Ketones Negative (Negative) Urine Blood 2+ H (Negative) Urine Nitrite Negative (Negative) Urine Bilirubin Negative (Negative) Urine Urobilinogen Negative (Negative) Ur Leukocyte Esterase Negative (Negative) Urine WBC (Auto) 0 (0-5) /hpf Urine RBC (Auto) 5-10 H (0-4) /hpf U Hyaline Cast (Auto) 0 (0-5) /lpf U Epithel Cells (Auto) 0-5 (0-5) /lpf Urine Bacteria (Auto) Negative (Negative) COVID-19 Eval Order Covid19 at [facility] Imaging Data Radiologist's Impression: Abdomen/Pelvis CT 04/06/21 14:[address] WITH IV CONTRAST CT DOSE: 1672.41 mGy.cm HISTORY: Acute mid abdominal pain mid abd pain, intermittent protrusion ventrally TECHNIQUE: Multiaxial CT images of the abdomen and pelvis were performed foll owing the IV administration of 89 cc of Optiray, A dose lowering technique was utilized adhering to the principles of ALARA. COMPARISON STUDY: CT abdomen and pelvis 06/30/2019 FINDINGS: Mild bibasilar atelectasis. No pneumatosis or pneumoperitoneum. The imaged inferior cardiac chambers are unremarkable. Trace pericardial effusion. The spleen, pancreas, gallbladder, and imaging glands are unremarkable. Hepatic steatosis. Patency of the hepatic and portal veins. 3. Calculated left kidney measure up to 7 mm. No right nephrolithiasis. No ureteral calculi or hydronephrosis. Small fat filled left inguinal hernia. Small to moderate right inguinal hernia contains fat and a portion of the thickened right anterior aspect of the urinary bladder, unchanged from comparison. Mild atherosclerotic plaque of the abdominal aorta. No aneurysm. No adenopathy. No bowel obstruction. There is mild fecal retention. The appendix is dilated and fluid-filled measuring up to 4 mm which are mild wall thickening with mild periappendiceal inflammation. There is a single focus of air within the mid appendix. No evidence of perforation or abscess. Diastases recti. No bowel obstruction or bowel wall thickening. IMPRESSION: 1. Findings compatible with acute uncomplicated appendicitis. No evidence of perforation or abscess. 2. No bowel obstruction. 3. Bilateral inguinal hernias. A portion of the right anterior urinary bladder is again noted extending into the right inguinal hernia. 4. Nonobstructing left nephrolithiasis. 5. Hepatic steatosis. ACT 112: Negative or not required by law. The above report was generated using voice recognition software. It may contain grammatical, syntax or spelling errors. Electronically signed by: Blake Salgado M.D. 04/06/2021 4:48 PM [facility] Narrative Patient was seen and evaluated as above in room A03. Review was performed of emely sing notes and vital signs. After obtaining a thorough history and physical examination the above work up was performed. Patient presents to us today with periumbilical abdominal pain. He does have a reproducible and reducible hernia in the ventral region on exam just superior to the umbilicus. Clinically he appears well. Vital signs stable. Options of care were discussed with the patient. IV access established. Labs were drawn. Leukocytosis 18.30. No significant anemia. No emergent metabolic disturbance. Troponin within normal limits. Urinalysis does not suggest infection. Covid testing pending. EKG was obtained given location of abdominal pain and this reveals normal sinus rhythm rate of 97 bpm. QTc 436. QRS 92. No ST elevation. CT scan results as above. Acute appendicitis noted. I discussed this with the patient as well as the on-call surgery team. They came to e valuate the patient. 2 g of Mefoxin recommended and was ordered. Please refer to further documentation regarding his stay and surgical intervention. While in the department, I personally reevaluated the patient several times and each time the patient was found to be resting comfortably. Case was discussed with the attending physician. GCS: 15 In the evaluation and treatment of this patient the following differential diagnoses were entertained: [place], PE, bowel obstruction, acute appendicitis, cholecystitis, hernia, perforation, among others. Impression & Plan Acute appendicitis, Abdominal pain, acute, periumbilical Discharge Plan Visit Data Chief Complaint: Abdominal Pain Stated Complaint: REFERRED BY MD, ABDOMINAL PAIN ED Provider: [facility] Midlevel Provider: Charly Boyle Discharge Problem: Acute appendicitis, Abdominal pain, acute, periumbilical Patient Disposition: Being Evaluated by Surgeon Condition: Good Forms Stand Alone Forms: My [facility], Virtual Emergency Department, Important Visit Information Prescriptions Prescriptions: No Action meloxicam 7.5 mg tablet 7.5 mg PO BID PRN (Reason: pain) Qty: 20 RF: 0 sertraline [Zoloft] 50 mg tablet 100 mg PO HS RF: 0 buspirone 10 mg Tablet 10 mg PO BID RF: 0 Referrals Referrals: Terri Ann DO [Primary Care Provider] -
[2021-04-06 15:09] LABS: Basophils # (auto) 0.04 K/uL (0-0.2); Basophils % (auto) 0.2 %; Eosinophils # (auto) 0.08 K/uL (0-0.5); Eosinophils % (auto) 0.4 %; Hematocrit (blood only) 45.2 % (42-52); Hemoglobin 15.9 g/dL (14.0-18.0); Immature Granulocytes # (auto) 0.09 K/uL (0.00-0.02); Immature Granulocytes % (auto) 0.5 %; Lymphocytes # (auto) 2.18 K/uL (1.2-3.4); Lymphocytes % (auto) 11.9 %; Mean Corpuscular Hemoglobin 33.5 pg (25-34); Mean Corpuscular Hgb Conc 35.2 g/dL (32-36); Mean Corpuscular Volume 95.2 fL (80-100); Mean Platelet Volume 9.9 fL (7.4-10.4); Monocytes # (auto) 1.21 K/uL (0.11-0.59); Monocytes % (auto) 6.6 %; Neutrophils % (auto) 80.4 %; Platelet Count 236 K/uL (130-400); RDW Coefficient of Variation 13.3 % (11.5-14.5); RDW Standard Deviation 46.1 fL (36.4-46.3); Red Blood Count 4.75 M/uL (4.7-6.1)
[2021-04-06 15:17] LABS: Appearance Urine Clear (Clear); Bacteria Urine Automated Negative (Negative); Bilirubin Urine Negative (Negative); Blood Urine 2+ (Negative); Cast Urine Automated 0 /lpf (0-5); Color Urine Yellow; Epithelial Cell Urine Auto 0-5 /lpf (0-5); Glucose Urine UA Negative (Negative); Ketones Urine Negative (Negative); Leukocyte Esterase Urine Negative (Negative); Nitrite Urine Negative (Negative); Protein Urine Negative (Negative); Specific Gravity Urine 1.014 (1.000-1.030); Urobilinogen Urine Negative (Negative); WBC Urine Automated 0 /hpf (0-5)
[2021-04-06 15:27] LABS: Alanine Aminotransferase 32 U/L (12-78); Aspartate Aminotransferase 17 U/L (15-37); BUN Creatinine Ratio 14.5 (10-20); Blood Urea Nitrogen 14 mg/dl (7-18); Calcium 9.3 mg/dl (8.5-10.1); Carbon Dioxide 26 mmol/L (21-32); Chloride 104 mmol/L (98-107); Est GFR (African American) 95.4 ml/min; Est GFR (Non-African American) 82.3 ml/min; Glucose 90 mg/dl (70-99); Lipase 121 U/L (73-393); Potassium 3.9 mmol/L (3.5-5.1); Sodium 138 mmol/L (136-145)
[2021-04-06 15:31] LABS: Albumin Globulin Ratio 0.9 (0.9-2); Alkaline Phosphatase 109 U/L (45-117); Bilirubin,Total 0.5 mg/dl (0.2-1); Globulin 4.5 gm/dl (2.5-4.0); Total Protein 8.5 gm/dl (6.4-8.2); Troponin I < 0.015 ng/ml (0-0.045)
[2021-04-06] MEDS ORDERED: OPTIRAY 320 100ml IV ONE (16:08)
--- NOTE | 2021-04-06 16:49 | CT Scan Report ---
ABDOMEN AND PELVIS CT WITH IV CONTRAST CT DOSE: 1672.41 mGy.cm HISTORY: Acute mid abdominal pain mid abd pain, intermittent protrusion ventrally TECHNIQUE: Multiaxial CT images of the abdomen and pelvis were performed following the IV administrat ion of 89 cc of Optiray, A dose lowering technique was utilized adhering to the principles of ALARA. COMPARISON STUDY: CT abdomen and pelvis 06/30/2019 FINDINGS: Mild bibasilar atelectasis. No pneumatosis or pneumoperitoneum. The imaged inferior cardiac chambers are unremarkable. Trace pericardial effusion. The spleen, pancreas, gallbladder, and imaging glands a re unremarkable. Hepatic steatosis. Patency of the hepatic and portal veins. 3. Calculated left kidney measure up to 7 mm. No right nephrolithiasis. No ureteral calculi or hydron ephrosis. Small fat filled left inguinal hernia. Small to moderate right inguinal hernia contains fat and a portion of the thickened right anterior aspect of the urinary bladder, unchanged from comparis on. Mild atherosclerotic plaque of the abdominal aorta. No aneurysm. No adenopathy. No bowel obstruction. There is mild fecal retention. The appendix is dilated and fluid-filled measuri ng up to 4 mm which are mild wall thickening with mild periappendiceal inflammation. There is a singl e focus of air within the mid appendix. No evidence of perforation or abscess. Diastases recti. No [place] wel obstruction or bowel wall thickening. IMPRESSION: 1. Findings compatible with acute uncomplicated appendicitis. No evidence of perforation or abscess. 2. No bowel obstruction. 3. Bilateral inguinal hernias. A portion of the right anterior urinary bladder is again noted extendi ng into the right inguinal hernia. 4. Nonobstructing left nephrolithiasis. 5. Hepatic steatosis. ACT 112: Negative or not required by law. The above report was generated using voice recognition software. It may contain grammatical, syntax o r spelling errors. Electronically signed by: Blake Salgado M.D. 04/06/2021 4:48 PM
[2021-04-06] MEDS ORDERED: cefOXitin 2,000 MG/60 ML BAG IV STA (17:00)
--- NOTE | 2021-04-06 17:15 | History & Physical Report ---
Date of Service April 06, 2021 Assessment & Plan (1) Acute appendicitis: This is a 60y M with a PMH of ЮЛИЯ and anxiety who presents to the [facility] ED on 04/06/21 with complaints of abdominal pain that woke him up from his sleep overnight. Workup in the ER with a CT a/p revealed findings consistent with acute appendicitis, no perforation/abscess. WBC 18. Patient afebrile. On exam patient is tender to palpation in the RLQ. Discussed with patient findings and plan is to proceed with surgical intervention. Keep patient NPO with IVF and start pre-op abx. Covid testing has been ordered. We will book patient for a laparoscopic appendectomy today with Dr. Thompson. History of Present Illness Primary Care Provider: Terri Ann DO This is a 60y M with a PMH of ЮЛИЯ and anxiety who presents to the [facility] ED on 04/06/21 with complaints of abdominal pain. Patient states the pain woke up him up in the middle of the night, and started around his christian-umbilical region. He also felt a little stomach upset and overall ill. He drank some water at 7am thinking he was dehydrated, but the pain persisted. In the ER a CT a/p was performed that revealed findings compatible with acute uncomplicated append icitis. No evidence of perforation or abscess. Now the patient reports the pain is more located in the right lower abdominal region. He denies any prior abdominal surgery. He had a prior colonoscopy he reports was unremarkable. Allergies Allergy/AdvReac Type Severity Reaction Status Date / Time No Known Allergies Allergy Mild . Verified 04/06/21 16:34 Home Medications Medication Instructions Recorded Confirmed Type sertraline [Zoloft] 100 mg PO HS 06/30/19 04/06/21 History meloxicam 7.5 mg tablet 7.5 mg PO BID PRN #20 tab 03/13/20 04/06/21 Rx buspirone 10 mg PO BID 04/06/21 04/06/21 History Past Med/Surg History Medical History (Updated 04/06/21 @ 17:07 by Jaylene Avila PA-C) Anxiety Kidney stones Sleep apnea bipap nightly Surgical History H/O lithotripsy History of colonoscopy S/P ureteral stent placement hx Status post laser lithotripsy of ureteral calculus Family History Uncle Family history of diabetes mellitus Father FHx: stroke, Onset Age: 80 Social History Smoking Status: Former smoker Cigarettes Per Day: 1 ppd x30 years; Second Hand Exposure: No; Hx Alcohol Use: No Hx Substance Use: No Preferred Language: Azeri Communication Ability: Effective Neonatal Social Worker Required: No Beliefs That Will Affect Care: None Current Living Situation: Spouse and Family Feels Safe at Home: Yes Assistive Devices: BiPap and Glasses Review of Systems Constitutional: no fever and no chills Respiratory: no dyspnea Cardiovascular: no chest pain Gastrointestinal: + abdominal pain; no vomiting Physical Exam Physical Exam: awake/alert Constitutional: + obese; no acute distress Respiratory: normal respiratory effort Gastrointestinal (Abdomen): Percussion/Palpation: + abdomen tender (ttp in the RLQ) and abdomen soft + diastasis recti Results & Data Results & Data ([facility]) Vital Signs (Past 12 Hours) Vital Signs Temp Pulse Pulse Resp BP Pulse Ox 04/06/21 15:01 98 H 16 120/79 93 04/06/21 13:43 36.5 C 110 H 20 [address] WITH IV CONTRAST CT DOSE: 1672.41 mGy.cm HISTORY: Acute mid abdominal pain mid abd pain, intermittent protrusion ventrally TECHNIQUE: Multiaxial CT images of the abdomen and pelvis were performed followi ng the IV administration of 89 cc of Optiray, A dose lowering technique was utilized adhering to the principles of ALARA. COMPARISON STUDY: CT abdomen and pelvis 06/30/2019 FINDINGS: Mild bibasilar atelectasis. No pneumatosis or pneumoperitoneum. The imaged inferior cardiac chambers are unremarkable. Trace pericardial effusion. The spleen, pancreas, gallbladder, and imaging glands are unremarkable. Hepatic steatosis. Patency of the hepatic and portal veins. 3. Calculated left kidney measure up to 7 mm. No right nephrolithiasis. No ureteral calculi or hydronephrosis. Small fat filled left inguinal hernia. Small to moderate right inguinal hernia contains fat and a portion of the thickened right anterior aspect of the urinary bladder, unchanged from comparison. Mild atherosclerotic plaque of the abdominal aorta. No aneurysm. No adenopathy. No bowel obstruction. There is mild fecal retention. The appendix is dilated and fluid-filled measuring up to 4 mm which are mild wall thickening with mild periappendiceal inflammation. There is a single focus of air within the mid appendix. No evidence of perforation or abscess. Diastases recti. No bowel obstruction or bowel wall thickening. IMPRESSION: 1. Findings compatible with acute uncomplicated appendicitis. No evidence of perforation or abscess. 2. No bowel obstruction. 3. Bilateral inguinal hernias. A portion of the right anterior urinary bladder is again noted extending into the right inguinal hernia. 4. Nonobstructing left nephrolithiasis. 5. Hepatic steatosis. ACT 112: Negative or not required by law. The above report was generated using voice recognition software. It may contain grammatical, syntax or spelling errors. Electronically signed by: Blake Salgado M.D. Supervising Physician Co-Signing Physician Notes Patient seen and examined, labs and imaging reviewed, agree with above. 60-year-old male awoke with periumbilical abdominal pain that is now migrated to his right lower quadrant. On exam he is afebrile with stable vitals. His abdomen is obese with a diastases recti. He is tender to palpation in the right lower quadrant McBurney's point with localized guarding. WBC elevated. CT scan shows uncomplicated acute appendicitis. I personally reviewed the CT scan and agree with the findings. 60-year-old male with acute appendicitis Plan for laparoscopic appendectomy. Preop antibiotics. The risks of the procedure were discussed to include but not limited to bleeding, infection, conversion open, perforated appendix, damage to surrounding structures, normal appendix, need for future more extensive surgeries, and the risk of anesthesia The diagnosis, details of procedure recovery, and plan of care discussed the patient, all questions were answered, the patient expressed understanding agrees the plan of care as stated PG Care Time/CCT Total # of Minutes Spent Total Time Spent with Patient: Total time spent is greater than 50% in coordination of care (as documented) at patient's floor/unit and/or counseling patient: Coding Level of Care Code 42689 Initial Inpt Care Lvl 1 Diagnoses Acute appendicitis K35.80
[2021-04-06] MEDS ORDERED: PROMETHAZINE HCL 6.25 MG in SODIUM CHLORIDE 0.9% 50 ML IV PRN (19:22)
[2021-04-06] MEDS ORDERED: ATROPINE SULFATE 0.1 MG/ML 10ML SYR IV PRN (19:22)
[2021-04-06] MEDS ORDERED: fentaNYL citrate 100 MCG/2 ML VIAL IV PRN (19:22)
[2021-04-06] MEDS ORDERED: ONDANSETRON INJ 2 MG/ML 2 ML VIAL IV PRN ×2 (19:22→21:56)
[2021-04-06] MEDS ORDERED: BUPIVACAINE 0.5 % 5 MG/1 ML MPF 30ML VIAL ONE (19:22)
[2021-04-06] MEDS ORDERED: ePHEDrine sulfate 50 MG/ML AMP IV PRN (19:22)
--- NOTE | 2021-04-06 19:24 | Anesthesiology Consultation ---
Date of Service April 06, 2021 Assessment & Plan (1) Encounter for pre-operative examination: Chart Review Chart Review: Acceptable Risk for Surgery and Patient NOT seen in Pre Admission Testing Consults Requested none ASA [id number] Proposed Anesthesia Anesthesia Type: General (+RSI) Risk / Benefits Reviewed With: PT / POA / Parent / Guardian, Accepts Plan and Informed Consent Obtained History Surgery Operation Date: 04/06/21 10:15 Proposed Procedures p Laparoscopic Appendectomy - Harsha Thompson, DO, FACS Height/Weight Weight: 116.8 kg Allergies Allergy/AdvReac Type Severity Reaction Status Date / Time No Known Allergies Allergy Mild . Verified 04/06/21 16:34 Medications Home Medications Medication Instructions Recorded Confirmed Last Taken sertraline [Zoloft] 100 mg PO HS 06/30/19 04/06/21 04/05/21 meloxicam 7.5 mg tablet 7.5 mg PO BID PRN #20 tab 03/13/20 04/06/21 Unknown buspirone 10 mg PO BID 04/06/21 04/06/21 04/06/21 08:00 NPO Date Last Intake of Fluids: 04/06/21 Time Last Intake of Fluids: 07:00 Date Last Intake of Solids: 04/05/21 Time Last Intake of Solids: 23:30 Past Medical History Medical History Anxiety Kidney stones Sleep apnea bipap nightly Exercise / Class Metabolic Activity II 4-5 Yardwork/Stairs/Walk up hill Past Family History Family History Uncle Family history of diabetes mellitus Father FHx: stroke, Onset Age: 80 Past Surgical History Surgical History H/O lithotripsy History of colonoscopy S/P ureteral stent placement hx Status post laser lithotripsy of ureteral calculus Past Anesthesia History No Hx of Anesthesia Complications and No Family Hx of Anesthesia Complications History of PONV No Hx of PONV and No Hx of Motion Sickness Social History Smoking Status: Former smoker tobacco type: cigarettes Smoking cigarettes per day: 1 ppd x30 years Hx Alcohol Use: No Hx Substance Use: No substance use type: does not use Physical Exam Vital Signs Last Vital Signs Temp 37.9 C H 04/06/21 18:48 Pulse 100 H 04/06/21 18:48 Resp 18 04/06/21 18:48 BP 169/65 H 04/06/21 18:48 Pulse Ox 92 04/06/21 18:48 ENMT Mouth: no dentition abnormality Thyromental Distance: > or= 3.5 Finger Breadths Mallampati Class: III Neck normal visual inspection and + thick neck Respiratory normal respiratory effort Auscultation: lungs clear to auscultation bilaterally Cardiovascular Rate/Rhythm: regular rate and regular rhythm Psychiatric Orientation: alert Lab Results Anesthesia Preop Results Results Anesthesia Widget: WBC 18.30 K/uL (4.8-10.8) H 04/06/21 Hgb 15.9 g/dL (14.0-18.0) 04/06/21 Hct 45.2 % (42-52) 04/06/21 Plt 236 K/uL (130-400) 04/06/21 Na 138 mmol/L (136-145) 04/06/21 K 3.9 mmol/L (3.5-5.1) 04/06/21 Cl 104 mmol/L (98-107) 04/06/21 CO2 26 mmol/L (21-32) 04/06/21 BUN 14 mg/dl (7-18) 04/06/21 Creat 0.98 mg/dl (0.6-1.4) 04/06/21 Glucose Level 90 mg/dl (70-99) 04/06/21 Urine Color Yellow 04/06/21 Urine Appearance Clear (Clear) 04/06/21 Urine pH 7.0 (4.5-7.5) 04/06/21 Urine Specific [place] 1.014 (1.000-1.030) 04/06/21 Urine Protein Negative (Negative) 04/06/21 Urine Glucose (UA) Negative (Negative) 04/06/21 Urine Ketones Negative (Negative) 04/06/21 Urine Blood 2+ (Negative) H 04/06/21 Urine Nitrite Negative (Negative) 04/06/21 Urine Bilirubin Negative (Negative) 04/06/21 Urine Urobilinogen Negative (Negative) 04/06/21 Urine Leukocyte Esterase Negative (Negative) 04/06/21 Urine WBC (Auto) 0 /hpf (0-5) 04/06/21 Urine RBC (Auto) 5-10 /hpf (0-4) H 04/06/21 Urine Hyaline Casts (Auto) 0 /lpf (0-5) 04/06/21 Urine Epithelial Cells (Auto) 0-5 /lpf (0-5) 04/06/21 Urine Bacteria (Auto) Negative (Negative) 04/06/21 COVID-19 PCR NEGATIVE (Negative) 04/06/21 Testing Laboratory Results 04/06/21 14:59 04/06/21 14:59 Urine Color Yellow 04/06/21 15:00 Urine Appearance Clear (Clear) 04/06/21 15:00 Urine pH 7.0 (4.5-7.5) 04/06/21 15:00 Ur Specific [place] 1.014 (1.000-1.030) 04/06/21 15:00 Urine Protein Negative (Negative) 04/06/21 15:00 Urine Glucose (UA) Negative (Negative) 04/06/21 15:00 Urine Ketones Negative (Negative) 04/06/21 15:00 Urine Nitrite Negative (Negative) 04/06/21 15:00 Ur Leukocyte Esterase Negative (Negative) 04/06/21 15:00 Urine WBC (Auto) 0 /hpf (0-5) 04/06/21 15:00 Urine RBC (Auto) 5-10 /hpf (0-4) H 04/06/21 15:00 U Hyaline Cast (Auto) 0 /lpf (0-5) 04/06/21 15:00 U Epithel Cells (Auto) 0-5 /lpf (0-5) 04/06/21 15:00 Urine Bacteria (Auto) Negative (Negative) 04/06/21 15:00
[2021-04-06] MEDS ORDERED: fentaNYL citrate 100 MCG/2 ML VIAL ONE ×3 (19:33→20:29)
--- NOTE | 2021-04-06 20:56 | Operative Report ---
PG Post Operative Report Pre & Post Diagnosis Operation Date: 04/06/21 10:15 Pre-Op Diagnosis: Acute appendicitis Post-Op Diagnosis: Acute appendicitis I identified the patient and participated in the time-out.: Yes Procedure Operation Date: 04/06/21 10:15 Actual Procedures p Laparoscopic Appendectomy(Not Applicable) - Harsha Thompson DO, STEPH Surgeon Harsha Thompson DO, FACS Currency Counter Don Brownlee Estimated Blood Loss 5 Findings Consistent with Post-Op Diagnosis Acute, suppurative, nonperforated appendicitis. Specimens Appendix Anesthesia Type General Complications none Disposition Accompanied Patient To Recovery: No Disposition: Recovery Room Indications 60-year-old male presented with signs symptoms of acute appendicitis was confirmed by CT scan. Plan for laparoscopic appendectomy. The risks of the procedure were discussed, all questions were answered, and the patient agreed to proceed with surgery as planned. Description of Procedure The patient was properly identified, consented, and taken to the operating room where he was placed in the supine position. General endotracheal anesthesia was induced. SCDs and a safety belt were placed. Preoperative antibiotics were administered. A [place] catheter was not placed. The patient's abdomen was prepped and draped in the standard sterile fashion. Surgical timeout was performed and all parties were in agreement that this was the correct patient and procedure to be performed and we continued as planned. A stab incision was made to the left of the umbilicus and a Veress needle was inserted. Saline drop test confirmed entry to the abdomen. The abdomen was insufflated with carbon dioxide to the patient Toller without incident. The abdomen was then entered using a 5 mm 30 degree scope and a 5 mm trocar utilizing the Optiview technique. The camera was then reinserted and the abdomen inspected. No damage from initial trocar placement was noted, no gross abnormalities were noted within the 4 quadrants the abdomen. A 12 mm port was then placed in the left lower quadrant with care not to damage the epigastric vessels, and a 5 mm port was placed in the suprapubic midline with care not to damage the bladder. The patient was placed in Trendelenburg position and rotated towards the left. The small bowel was swept away from the right lower quadrant. The sigmoid colon was quite redundant and actually on the right side of the abdomen. This was swept away to the left side of the abdomen. The cecum was grasped with an atraumatic grasper exposing the appendix. The appendix was moderately inflamed and there was no evidence of perforation. There was some fibrinous exudate along the appendix. There was no fluid in the pelvis. The appendix was partially retrocecal. The white line of Toldt and attachments to the abdominal were taken down using the harmonic scalpel. Once the appendix was freed from the lateral abdominal wall, a window was created between the base of the appendix and the mesoappendix. A osborne loaded endoscopic stapler was then used to divide the appendix at its base. The mesoappendix was then divided using the harmonic scalpel. Hemostasis was good. The appendix was placed in an Endo Catch bag and removed through the left lower quadrant port site. The right lower quadrant and pelvis was irrigated and hemostasis was found to be good. The 12 mm port site fascia was closed with an 0 Vicryl suture utilizing the Moises-Dave device. 5 mm trochars were removed and the abdomen was allowed to collapse. The wound was irrigated, and the skin of all ports was closed with 4-0 Monocryl subcuticular sutures. Dermabond was placed over the wounds. The patient was extubated in the operating room and taken to the PACU where he recovered without apparent incident. All sponge, instrument and needle counts were correct at the conclusion of the procedure. The patient tolerated the procedure well. The physician's administrative library assistant was present and scrubbed for the entire the case. He was critical in positioning the patient, prepping and draping, retraction and exposure, driving the laparoscope, removal of the appendix, closure the incisions, and placement of the dressings. I attest to the content of the Intraoperative Record and any orders documented therein. Any exceptions are noted below.
--- NOTE | 2021-04-06 21:36 | Anesthesiology Progress Note ---
Date of Service April 06, 2021 Anesthesia Post Procedure Vital Signs Vital Signs: Temp Pulse Pulse Pulse Resp BP BP 04/06/21 21:25 36.8 C 95 H 18 04/06/21 21:15 99 H 18 04/06/21 21:05 37.0 C 102 H 18 04/06/21 18:48 37.9 C H 100 H 18 169/65 H 04/06/21 18:30 16 152/90 H 04/06/21 18:00 16 136/85 04/06/21 17:30 136/82 04/06/21 17:00 125/72 04/06/21 16:00 96 H 22 121/76 04/06/21 15:30 98 H 21 117/86 04/06/21 15:01 98 H 16 120/79 04/06/21 14:59 101 H 24 120/79 04/06/21 13:43 36.5 C 110 H 20 BP Pulse Ox 04/06/21 21:25 174/80 H 94 04/06/21 21:15 158/87 H 95 04/06/21 21:05 120/96 95 04/06/21 18:48 92 04/06/21 18:30 04/06/21 18:00 04/06/21 17:30 96 04/06/21 17:00 96 04/06/21 16:00 94 04/06/21 15:30 94 04/06/21 15:01 93 04/06/21 14:59 91 04/06/21 13:43 95 Pain Intensity Upper Abdomen: Pain Intensity: 4 Transfer of Care Handoff Completed per policy Notes Mental Status: alert / awake / arousable Patient Amnestic to Procedure: Yes Nausea / Vomiting: adequately controlled Pain: adequately controlled Airway Patency, RR, SpO2: stable & adequate BP & HR: stable & adequate Hydration State: stable & adequate Anesthetic Complications: no major complications apparent
[2021-04-06] MEDS ORDERED: MoRPHine SULFATE 4 MG/ML 1 ML CARP\\VIAL IV PRN (21:56)
[2021-04-06] MEDS ORDERED: oxyCODONE HCL SOLN 5 MG/5 ML UDC PO PRN (21:56)
[2021-04-06] MEDS ORDERED: LACTATED RINGER'S 1,000 ML IV SCH (22:30)
[2021-04-06] MEDS ORDERED: SERTRALINE HCL 100 MG TABLET PO SCH (22:30)
[2021-04-06] MEDS: ACETAMINOPHEN 1,000 MG/100 ML VIAL IV SCH (22:47)
[2021-04-06] MEDS: busPIRone 5 MG TAB PO SCH (22:48)
--- NOTE | 2021-04-06 23:04 | Electrocardiogram Report ---
Test Reason : Blood Pressure : / mmHG Vent. Rate : 097 BPM Atrial Rate : 097 BPM P-R Int : 178 ms QRS Dur : 092 ms QT Int : 344 ms P-R-T Axes : 049 -53 020 degrees QTc Int : 436 ms Normal sinus rhythm Left anterior fascicular block Minimal voltage criteria for LVH, may be normal variant Poor R wave progression, consider anterior MD vs. lead placement vs. LVH Abnormal ECG When compared with ECG of 01-JUL-2019 10:25, Vent. rate has increased BY 40 BPM Left anterior fascicular block is now Present Confirmed by Carlton Heath ([id number]) on 04/06/2021 11:04:00 PM Referred By: Terri Ann Confirmed By:Carlton Heath
[2021-04-06] MEDS: cefOXitin 2,000 MG in DEXTROSE 5% 50 ML IV SCH (23:12)
[2021-04-07] MEDS: cefOXitin 2,000 MG in DEXTROSE 5% 50 ML IV SCH ×2 (04:23→09:53)
[2021-04-07] MEDS: ACETAMINOPHEN 1,000 MG/100 ML VIAL IV SCH (06:11)
[2021-04-07] MEDS: busPIRone 5 MG TAB PO SCH (09:02)
--- NOTE | 2021-04-07 09:24 | Surgery Progress Note ---
Date of Service April 07, 2021 Assessment & Plan (1) Acute appendicitis: POD#1 laparoscopic appendectomy Patient overall progressing as expected Tolerating clear liquids, okay to advance as tolerates Pain manageable on current regimen Incisions c/d/i Stable for discharge to home today; dispo instructions provided. Follow up with Dr. Thompson in clinic within 1-2 weeks Admission and Anticipated Discharge Date Admission Date: April 06, 2021 Supervising Physician Co-Signing Physician Notes Patient seen and examined, agree with above. POD #1 laparoscopic appendectomy. He feels much better this morning. He has some discomfort in his left lower quadrant port site incision which is a 12 mm port site. Otherwise he has tolerated a small diet, and his pain that he had prior to surgery are gone. On exam he is afebrile with stable vitals. His abdomen is soft, appropriately tender to palpation, with incisions that are clean dry and intact with no evidence of infection. Plan to discharge to home. Follow-up in 2 weeks with me in the office. Wound care instructions and activity restrictions reviewed. Return precautions given. Subjective Patient says "all things considered, I am feeling well". Says he has some pain, made worse with certain movements, but it has been manageable. He is on a clear liquid diet, tolerating well. No nausea/vomiting. He tells me he really wants to eat a [employer] burrito. Physical Exam Physical Exam: awake/alert Constitutional: no acute distress Respiratory: normal respiratory effort Gastrointestinal (Abdomen): Inspection/Auscultation: + abdominal surgical incision (c/d/i with dermabond overtop) Percussion/Palpation: + abdomen tender (some christian-incisional ttp ) and abdomen soft Results & Data ([facility]) Vital Signs (Past 12 Hours) Vital Signs Temp Pulse Pulse Pulse Pulse Resp BP 04/07/21 07:08 36.4 C L 67 16 132/64 04/07/21 03:53 36.9 C 79 18 132/72 04/07/21 03:36 82 15 04/07/21 01:02 37.1 C 80 18 118/72 04/07/21 00:30 89 22 04/06/21 23:56 37.0 C 80 16 122/73 04/06/21 22:50 36.5 C 86 14 134/78 04/06/21 22:30 36.9 C 85 14 132/83 04/06/21 21:50 37.3 C 88 14 137/80 04/06/21 21:35 89 16 165/78 H 04/06/21 21:25 36.8 C 95 H 18 174/80 H Pulse Ox 04/07/21 07:08 93 04/07/21 03:53 95 04/07/21 03:36 92 04/07/21 01:02 93 04/07/21 00:30 94 04/06/21 23:56 94 04/06/21 22:50 94 04/06/21 22:30 92 04/06/21 21:50 91 04/06/21 21:35 97 04/06/21 21:25 94 PG Care Time/CCT Total # of Minutes Spent Total Time Spent with Patient: Total time spent is greater than 50% in coordination of care (as documented) at patient's floor/unit and/or counseling patient: Coding Level of Care Code None Diagnoses Acute appendicitis K35.80
--- NOTE | 2021-04-08 10:15 | Discharge Summary ---
Date of Service April 08, 2021 Admission HPI Per Admitting Provider This is a 60y M with a PMH of ЮЛИЯ and anxiety who presents to the [facility] ED on 04/06/21 with complaints of abdominal pain. Patient states the pain woke up him up in the middle of the night, and started around his christian-umbilical region. He also felt a little stomach upset and overall ill. He drank some water at 7am thinking he was dehydrated, but the pain persisted. In the ER a CT a/p was performed that revealed findings compatible with acute uncomplicated appendicitis. No evidence of perforation or abscess. Now the patient reports the pain is more located in the right lower abdominal region. He denies any prior abdominal surgery. He had a prior colonoscopy he reports was unremarkable. Principal Diagnosis acute appendicitis Discharge Exam awake/alert Constitutional no acute distress Respiratory normal respiratory effort Gastrointestinal (Abdomen) Inspection/Auscultation: + abdominal surgical incision (c/d/i with dermabond overtop) Percussion/Palpation: + abdomen tender (mild christian-incisional ttp) and abdomen soft Discharge Data Allergies Allergy/AdvReac Type Severity Reaction Status Date / Time No Known Allergies Allergy Mild . Verified 04/06/21 16:34 Procedures Performed Operation Date: 04/06/21 10:15 Actual Procedures p Laparoscopic Appendectomy(Not Applicable) - Harsha Thompson, , FACS Ordered Studies 04/06/21 14:17 CT abd pelvis IV con only Stat Hospital Course (1) Acute appendicitis: This is a 60y M with a PMH of ЮЛИЯ and anxiety who presents to the [facility] ED on 04/06/21 with complaints of abdominal pain. Workup in the ER with a CT a/p revealed findings concerning for acute appendicitis. Patient tender in the RLQ and WBC 18. Plan was made to proceed with surgical intervention. He was taken to the OR with Dr. Thompson on 04/06/21 for a laparoscopic appendectomy. The patient tolerated the procedure well, see op note for full details. The patient recovered in the PACU and was transferred to the med/surg unit in stable condition for overnight observation. He continued on post op abx and was given a clear liquid diet. On POD#1 patient's diet was advanced as tolerated. He had some christian-incisional pain that was managed with prn medications. Incisions c/d/i. He was voiding on his own without issue. The patient was deemed stable for discharge to home with plans to follow up in clinic within 1- [address] Thompson. Total Time Total Time Spent Total Time Spent (In Minutes): 10 Discharge Plan Discharge Items Patient Disposition: Home - Self-Care Reason For Visit: APPY Discharge Diagnosis: laparoscopic appendectomy Condition on Discharge: Good Activity: Per Instructions section Lifting: No more than 10 pounds Bathing Comment: may shower; no soaking in tubs/pools Exercise/Sports: Wait until after follow-up appointment Driving/Machine Use: wait at least 3 days; no driving while taking narcotics for pain Non-emergency contact: Surgeon Call non-emergency contact if: you have any medication questions, your symptoms worsen, your pain is not controlled, your pain is worsening, your pain is unusual for you, your pain is concerning for you, you have a fever, your temperature is above 101.5, your wound has increased redness and your wound has increased drainage Follow-up/Referrals: Harsha Thompson DO, FACS [Physician] - 04/20/21 9:00 am () Terri Ann DO [Primary Care Provider] - Diet: Regular Addtl Attending Provider Instructions: Addtl Pulpit Operator Provider Instructions: You have been prescribed a narcotic called Percocet to take if needed for moderate-severe pain. Do not take Percocet concurrently with Tylenol as they both contain Acetaminophen, and you should not exceed >3grams of Acetaminophen within a 24 hour time period. If you are not taking the Percocet for pain, you may take Tylenol for pain. Pending Studies at Discharge: Yes Studies:: surgical pathology Stand-Alone Forms: [facility], Opioid Pain Management, Smoking Cessation Medications and DC Order Prescriptions: New oxycodone-acetaminophen [Percocet] 5-325 mg tablet 1 - 2 tab PO .q4-6h PRN (Reason: pain, for initial therapy, max 6 tabs per day) Qty: 12 RF: 0 Continued meloxicam 7.5 mg tablet 7.5 mg PO BID PRN (Reason: pain) Qty: 20 RF: 0 sertraline [Zoloft] 50 mg tablet 100 mg PO HS RF: 0 buspirone 10 mg Tablet 10 mg PO BID RF: 0 Discharge Orders: Discharge Order (Routine); Ordered 04/07/21 Ordered By: Jaylene Ackerman/Other Patient Handouts: DVT Post Op Prevention Admission Data Admit Date/Time: 04/06/21 20:55 Attending Provider: Harsha Thompson Admit Provider: Chinedu Brownlee Primary Care Provider: Treri Ann Other Interventions: Discharge Summary Assessment (RN) Last Done: 04/07/21 10:54 Coding Level of Care Code D/C Day Management <30 mins Diagnoses Acute appendicitis K35.80
== END 2021-04-07 12:48 | disposition home or self-care (01) ==
LOC: ED 13:37 → 3N 13:37

== ENCOUNTER 2021-08-19 19:59 | Observation (INO) ==
[2021-08-19 20:28] LABS: Basophils # (auto) 0.05 K/uL (0-0.2); Basophils % (auto) 0.5 %; Eosinophils # (auto) 0.24 K/uL (0-0.5); Eosinophils % (auto) 2.2 %; Hematocrit (blood only) 45.8 % (42-52); Immature Granulocytes # (auto) 0.14 K/uL (0.00-0.02); Immature Granulocytes % (auto) 1.3 %; Lymphocytes # (auto) 3.11 K/uL (1.2-3.4); Lymphocytes % (auto) 28.9 %; Mean Corpuscular Hemoglobin 33.3 pg (25-34); Mean Corpuscular Hgb Conc 34.9 g/dL (32-36); Mean Corpuscular Volume 95.4 fL (80-100); Mean Platelet Volume 9.5 fL (7.4-10.4); Monocytes # (auto) 0.88 K/uL (0.11-0.59); Monocytes % (auto) 8.2 %; Neutrophils # (auto) 6.33 K/uL (1.4-6.5); Neutrophils % (auto) 58.9 %; Platelet Count 218 K/uL (130-400); RDW Coefficient of Variation 13.5 % (11.5-14.5); RDW Standard Deviation 46.8 fL (36.4-46.3); White Blood Count 10.75 K/uL (4.8-10.8)
[2021-08-19 20:31] LABS: Appearance Urine Clear (Clear); Bacteria Urine Automated Negative (Negative); Bilirubin Urine Negative (Negative); Blood Urine 2+ (Negative); Cast Urine Automated 0 /lpf (0-5); Color Urine Yellow; Epithelial Cell Urine Auto 0-5 /lpf (0-5); Glucose Urine UA Negative (Negative); Ketones Urine Negative (Negative); Leukocyte Esterase Urine Negative (Negative); Nitrite Urine Negative (Negative); Protein Urine Negative (Negative); RBC Urine Automated 0-4 /hpf (0-4); Specific Gravity Urine 1.021 (1.000-1.030); Urobilinogen Urine Negative (Negative); pH Urine 5.5 (4.5-7.5)
[2021-08-19 20:44] LABS: Albumin Level 4.2 gm/dl (3.4-5.0); BUN Creatinine Ratio 18.8 (10-20); Calcium 9.5 mg/dl (8.5-10.1); Creatinine Clr Calc Pharmacy 82.8 ml/min; Est GFR (African American) 68.6 ml/min; Est GFR (Non-African American) 59.2 ml/min; Potassium 4.2 mmol/L (3.5-5.1)
[2021-08-19 20:47] LABS: Albumin Globulin Ratio 0.9 (0.9-2); Bilirubin,Total 0.4 mg/dl (0.2-1); Globulin 4.8 gm/dl (2.5-4.0)
[2021-08-19] MEDS ORDERED: ONDANSETRON INJ 2 MG/ML 2 ML VIAL IV STA (21:37)
[2021-08-19] MEDS ORDERED: KETOROLAC TROMETHAMINE 15 MG/ML VIAL IV STA (21:37)
[2021-08-19] MEDS ORDERED: SODIUM CHLORIDE 0.9% 1000ML 1,000 ML IV ONE (21:37)
[2021-08-19] MEDS ORDERED: OPTIRAY 320 125ml IV ONE (22:19)
[2021-08-19] MEDS ORDERED: MoRPHine SULFATE 4 MG/ML 1 ML CARP\\VIAL IV STA (23:36)
--- NOTE | 2021-08-20 00:30 | History & Physical Report ---
Date of Service August 20, 2021 Assessment & Plan (1) Nephrolithiasis: Plan: 61yo male presenting with left sided nephrolithiasis with hydroureteronephrosis. Patient with considerable pain, 8/10 after receiving IV Dilaudid. Has history of stones, has seen Urology in the past. Stone is 5mm at left ureterovesicular junction - hopefully will be able to pass. -Admit to medical -Strain urine -Pain control with Tylenol, Toradol and Morphine PRN -Zofran PRN -Flomax 0.4mg po x 1 now. -Urology consultation appreciated (2) Anxiety: Plan: Chronic. Stable -Continue Sertaline and Buspirone at home doses (3) ЮЛИЯ (obstructive sleep apnea): Plan: Chronic. Patient reports compliance with his home BiPAP - 17/09 qHS -Nocturnal BiPAP Plan: F/E/N - LR at 125mL/hr x 2 liters, electrolytes WNL, NPO for now except meds/chips/sips Ppx - SCDs Code - Full Dispo - Admit to medical History of Present Illness Chief Complaint: Left sided abdominal/flank pain Primary Care Provider: DO Abraham Cade Jason is a pleasant 61yo male presenting with left sided flank and abdominal pain. Pain began suddenly this afternoon after a nap. Left lower abdominal discomfort, 10/10 in severity. Pain progressed throughout the evening. Associated with nausea and 8-9 episodes of non-bloody/non-bilious vomiting and dry heaving, chills. He denies fever, chest pain, palpitations, diarrhea. Has some baseline SOB which is stable and unchanged. No additional complaints at this time. He is urinating without difficulty. ER Course: Toradol 15mg IV, Morphine 4mg IV, Zofran 4mg IV, NSS Allergies Allergy/AdvReac Type Severity Reaction Status Date / Time No Known Allergies Allergy Mild . Verified 08/19/21 21:17 Home Medications Medication Instructions Recorded Confirmed Type buspirone 10 mg tablet 10 mg PO BID 04/06/21 08/19/21 History multivitamin 1 tab PO DAILY 04/20/21 08/19/21 History Juice Plus-Gold Tab 1 tab PO BID 08/19/21 08/19/21 History Juice Plus-Fruit Tab 1 tab PO BID 08/19/21 08/19/21 History Juice Plus-Veggie Tab 1 tab PO BID 08/19/21 08/19/21 History acetaminophen 500 mg tablet 1,000 mg PO BID 08/19/21 08/19/21 History (Tylenol Extra Strength) lisinopril 2.5 mg tablet 2.5 mg PO DAILY 08/19/21 08/19/21 History meloxicam 15 mg tablet 15 mg PO DAILY 08/19/21 08/19/21 History etqanobcsjhj-dhl-qduwq acid-vit 1 tab PO DAILY 08/19/21 08/19/21 History K-lycop 400 mcg-20 mcg-370 mcg tablet (One-A-Day Men's 50 Plus) sertraline 100 mg tablet 300 mg PO HS 08/19/21 08/19/21 History Past Med/Surg History Medical History (Updated 08/20/21 @ 00:26 by Zulema Blackmon DO) Anxiety History of nephrolithiasis Sleep apnea bipap nightly Ureterolithiasis Surgical History (Updated 04/20/21 @ 09:47 by Harsha Thompson DO, FACS) H/O lithotripsy History of colonoscopy History of laparoscopic appendectomy Laparoscopic appendectomy 04/06/2021 Dr. Thompson S/P ureteral stent placement hx Status post laser lithotripsy of ureteral calculus Family History Uncle Family history of diabetes mellitus Father FHx: stroke, Onset Age: 80 Social History Smoking Status: Never smoker Cigarettes Per Day: 1 ppd x30 years; Second Hand Exposure: No; Hx Alcohol Use: No Hx Substance Use: No Preferred Language: Solomon Islander Communication Ability: Effective Supervisor Billposting Required: No Beliefs That Will Affect Care: None Current Living Situation: Family Current Living Situation Comment: , daughter Feels Safe at Home: Yes Assistive Devices: Glasses Review of Systems Review of Systems: All systems reviewed & are unremarkable except as noted in HPI & below Physical Exam Physical Exam: General: patient resting comfortably, NAD, non-toxic in appearance, AA&O x 4 Skin: warm, dry, intact, no rashes or lesions HEENT: NC/AT, PERRL, EOMI, anicteric sclera, conjunctiva without injection, external ear normal to inspection and nontender, nares patent, moist mucus membranes, dentition intact, no oropharyngeal lesions, neck supple, trachea midline, no LAD, no thyromegaly, no JVD Heart: +S1/S2, regular, no m/r/g Lungs: equal air entry bilaterally, no rales/rhonchi/wheezes Abd: +BS, soft, LLQ tenderness without rebound/guarding/peritoneal signs, no masses/organomegaly/ascites Ext: warm, 2+ pulses in UE/LE bilaterally, no clubbing/cyanosis or edema Neuro: nonfocal, patient AA&O x 4, speech intact, no facial droop, moving all extremities on command with equal strength 5/5 Results & Data Results & Data ([facility]) Vital Signs (Past 12 Hours) Vital Signs Temp Pulse Pulse Resp BP BP Pulse Ox 08/19/21 22:40 78 16 95 08/19/21 22:30 82 15 87 L 08/19/21 22:24 82 22 90 08/19/21 22:00 75 20 99 08/19/21 21:50 81 20 99 08/19/21 21:40 86 18 08/19/21 21:30 87 14 98 08/19/21 21:20 85 19 100 08/19/21 21:10 78 16 98 08/19/21 21:08 81 82 21 188/90 H 99 08/19/21 20:02 36.1 C L 83 28 H 184/124 H 94 Laboratory Results Laboratory Results WBC 10.75 K/uL (4.8-10.8) 08/19/21 20:23 RBC 4.80 M/uL (4.7-6.1) 08/19/21 20:23 Hgb 16.0 g/dL (14.0-18.0) 08/19/21 20:23 Hct 45.8 % (42-52) 08/19/21 20:23 MCV 95.4 fL (80-100) 08/19/21 20:23 MCH 33.3 pg (25-34) 08/19/21 20:23 MCHC 34.9 g/dL (32-36) 08/19/21 20:23 RDW Std Deviation 46.8 fL (36.4-46.3) H 08/19/21 20:23 RDW Coeff of Giselle 13.5 % (11.5-14.5) 08/19/21: Plt Count 218 K/uL (130-400) 08/19/21: MPV 9.5 fL (7.4-10.4) 08/19/21: Immature Gran % (Auto) 1.3 % 08/19/21: Neut % (Auto) 58.9 % 08/19/21: Lymph % (Auto) 28.9 % 08/19/21: Fulton % (Auto) 8.2 % 08/19/21: Eos % (Auto) 2.2 % 08/19/21: Baso % (Auto) 0.5 % 08/19/21: Neut # (Auto) 6.33 K/uL (1.4-6.5) 08/19/21: Lymph # (Auto) 3.11 K/uL (1.2-3.4) 08/19/21: Fulton # (Auto) 0.88 K/uL (0.11-0.59) H 08/19/21: Eos # (Auto) 0.24 K/uL (0-0.5) 08/19/21: Baso # (Auto) 0.05 K/uL (0-0.2) 08/19/21: Immature Gran # (Auto) 0.14 K/uL (0.00-0.02) H 08/19/21 20: Sodium 136 mmol/L (136-145) 08/19/21: Potassium 4.2 mmol/L (3.5-5.1) 08/19/21: Chloride 106 mmol/L (98-107) 08/19/21: Carbon Dioxide 23 mmol/L (21-32) 08/19/21: Anion Gap 7.0 (3-11) 08/19/21: BUN 24 mg/dl (7-18) H 08/19/21: Creatinine 1.28 mg/dl (0.6-1.4) 08/19/21: Est Cr Clr Drug Dosing 82.8 ml/min 08/19/21 Est GFR ( Amer) 68.6 ml/min 08/19/21 Est GFR (Non-Af Amer) 59.2 ml/min 08/19/21 BUN/Creatinine Ratio 18.8 (10-20) 08/19/21: Glucose 94 mg/dl (70-99) 08/19/21: Calcium 9.5 mg/dl (8.5-10.1) 08/19/21: Total Bilirubin 0.4 mg/dl (0.2-1) 08/19/21: AST 23 U/L (15-37) 08/19/21: ALT 34 U/L (12-78) 08/19/21 Alkaline Phosphatase 118 U/L (45-117) H 08/19/21 Total Protein 9.0 gm/dl (6.4-8.2) H 08/19/21: Albumin 4.2 gm/dl (3.4-5.0) 08/19/21: Globulin 4.8 gm/dl (2.5-4.0) H 08/19/21 Albumin/Globulin Ratio 0.9 (0.9-2) 08/19/21: Lipase 285 U/L (73-393) 08/19/21 Urine Color Yellow 08/19/21 Urine Appearance Clear (Clear) 08/19/21 Urine pH 5.5 (4.5-7.5) 08/19/21 Ur Specific Vaughn 1.021 (1.000-1.030) 08/19/21 Urine Protein Negative (Negative) 08/19/21 Urine Glucose (UA) Negative (Negative) 08/19/21 Urine Ketones Negative (Negative) 08/19/21 Urine Blood 2+ (Negative) H 08/19/21 Urine Nitrite Negative (Negative) 08/19/21 Urine Bilirubin Negative (Negative) 08/19/21 Urine Urobilinogen Negative (Negative) 08/19/21 Ur Leukocyte Esterase Negative (Negative) 08/19/21 Urine WBC (Auto) 1-5 /hpf (0-5) 10/20/21 20:23 Urine RBC (Auto) 0-4 /hpf (0-4) 08/19/21 20:23 U Hyaline Cast (Auto) 0 /lpf (0-5) 08/19/21 20:23 U Epithel Cells (Auto) 0-5 /lpf (0-5) 08/19/21 20:23 Urine Bacteria (Auto) Negative (Negative) 08/19/21 20:[address] Abdomen and Pelvis with contrast: Per STAT-rad - Comparison to April 06, 2021. There is moderate left hydronephrosis and hydroureter down to a 5 mm calculus at the left ureterovesicular junction. There is also a 10 mm nonobstructive calyceal calculus on the left. The right kidney is unremarkable. The urinary bladder is mostly decompressed and extends partially into the right inguinal hernia similar to previous. There is fatty infiltration of the liver and hepatomegaly measuring 20 cm craniocaudal. No focal liver lesion is seen. The gallbladder, pancreas, spleen, and adrenal glands are unremarkable. Bowel loops are nondilated. No acute inflammatory process is seen involving the bowel. Mild to moderate degenerative changes throughout the thoracic and lumbar spine. No acute fracture or subluxation is seen. Code Status & VTE Plan VTE Prophylaxis Plan VTE Prophylaxis will be ordered: Yes PG Care Time/CCT Total # of Minutes Spent Total Time Spent with Patient: Total time spent is greater than 50% in coordination of care (as documented) at patient's floor/unit and/or counseling patient: Coding Level of Care Code 14944 Initial Inpt Care Lvl 2 Diagnoses Anxiety F41.9 ЮЛИЯ (obstructive sleep apnea) G47.33 Nephrolithiasis N20.0
--- NOTE | 2021-08-20 00:47 | Urology Consultation ---
Date of Consultation August 20, 2021 Assessment & Plan (1) Nephrolithiasis: Patient is being admitted on the hospitalist service we recommend proceeding as follows: Provide analgesics provide antiemetics Hydration with IV fluids Strain all urine and save any kidney stones that are retrieved for appropriate analysis Recommend maintaining n.p.o. status in the event that the patient require cystoscopic intervention in the morning Recommend using Flomax for expulsive therapy At the present time the patient does not have a fever, leukocytosis, tachycardia, acute kidney injury or other signs or symptoms of sepsis. I therefore do not think urgent urologic intervention is required at this time. Additional recommendations be forthcoming based on his clinical course as unfolds History of Present Illness Reason for Consultation: Nephrolithiasis History of Present Illness This is a 61-year-old male who developed left flank pain earlier today. He said that the pain causes some nausea vomiting. He denies any fevers, shakes, chills. He says the pain does radiate around to the front of his abdomen to his groin. He does not note any modifying factors other than it is alleviated somewhat with medicines that were administered in the emergency department. With his symptoms he denies any dysuria or hematuria. Patient says that he has had kidney stones in the past. He did require lithotripsy most recently in July 2019. Because of his symptoms he presented to the emergency department. In the emergency department patient had labs and imaging which independent reviewed. CBC revealed white blood cell count, hemoglobin, hematocrit, and platelet count are all within normal range. Chemistry profile showed sodium, potassium, and creatinine within normal range. His BUN was slightly elevated at 24. Urinalysis was not indicative of infection but did have 2+ blood. A Covid test visit has been ordered and is pending. A CT scan of the abdomen and pelvis showed the patient had moderate left hydronephrosis. A 5 mm kidney stone was noted at the left ureterovesical junction. He was also noted to have a 10 mm nonobstructive calyceal calculus on the left side. At the time my interview the patient was resting in bed in no distress. Allergies Allergy/AdvReac Type Severity Reaction Status Date / Time No Known Allergies Allergy Mild . Verified 08/19/21 21:17 Home Medications Medication Instructions Recorded Confirmed Type buspirone 10 mg tablet 10 mg PO BID 04/06/21 08/19/21 History multivitamin 1 tab PO DAILY 04/20/21 08/19/21 History Juice Plus-Gold Tab 1 tab PO BID 08/19/21 08/19/21 History Juice Plus-Fruit Tab 1 tab PO BID 08/19/21 08/19/21 History Juice Plus-Veggie Tab 1 tab PO BID 08/19/21 08/19/21 History acetaminophen 500 mg tablet 1,000 mg PO BID 08/19/21 08/19/21 History (Tylenol Extra Strength) lisinopril 2.5 mg tablet 2.5 mg PO DAILY 08/19/21 08/19/21 History meloxicam 15 mg tablet 15 mg PO DAILY 08/19/21 08/19/21 History eipqvdamhycw-djs-xukmf acid-vit 1 tab PO DAILY 08/19/21 08/19/21 History K-lycop 400 mcg-20 mcg-370 mcg tablet (One-A-Day Men's 50 Plus) sertraline 100 mg tablet 300 mg PO HS 08/19/21 08/19/21 History Patient History Medical History Anxiety History of nephrolithiasis Sleep apnea bipap nightly Ureterolithiasis Surgical History H/O lithotripsy History of colonoscopy History of laparoscopic appendectomy Laparoscopic appendectomy 04/06/2021 Dr. Thompson S/P ureteral stent placement hx Status post laser lithotripsy of ureteral calculus Family History Uncle Family history of diabetes mellitus Father FHx: stroke, Onset Age: 80 Social History Smoking Status: Never smoker Cigarettes Per Day: 1 ppd x30 years; Second Hand Exposure: No; Hx Alcohol Use: No Hx Substance Use: No Preferred Language: Nauruan Communication Ability: Effective Dry Can Tender Required: No Beliefs That Will Affect Care: None Current Living Situation: Family Current Living Situation Comment: , daughter Feels Safe at Home: Yes Assistive Devices: Glasses Review of Systems Constitutional: no fever and no chills Eyes: no diplopia Ear, Nose, Mouth, Throat: no ear pain Respiratory: no cough and no dyspnea Cardiovascular: no chest pain Gastrointestinal: + nausea and + vomiting; no abdominal pain Genitourinary: + flank pain; no dysuria or no hematuria Musculoskeletal: + back pain (Left flank pain) Integumentary: no rash Neurologic: no localized weakness Physical Exam Constitutional: well developed, well nourished and + obese; no acute distress Eyes: no conjunctival abnormality Wears glasses ENMT: Ears: no hearing impairment Mouth: no oropharynx abnormality Neck: trachea midline Respiratory: normal respiratory effort; no respiratory distress Cardiovascular: Rate/Rhythm: regular rate and regular rhythm Gastrointestinal (Abdomen): Abdomen is soft, nontender, nondistended. There is no pain with palpation Musculoskeletal: No calf tenderness Skin: no rashes Neurologic: moves all extremities Psychiatric: A+Ox3, euthymic affect Genitourinary: no CVA tenderness Results & Data ([facility]) Vital Signs (Past 12 Hours) Vital Signs Temp Pulse Pulse Resp BP BP Pulse Ox 08/20/21 00:17 81 20 160/94 H 92 08/19/21 22:40 78 16 95 08/19/21 22:30 82 15 87 L 08/19/21 22:24 82 22 90 08/19/21 22:00 75 20 99 08/19/21 21:50 81 20 99 08/19/21 21:40 86 18 08/19/21 21:30 87 14 98 08/19/21 21:20 85 19 100 08/19/21 21:10 78 16 98 08/19/21 21:08 81 82 21 188/90 H 99 08/19/21 20:02 36.1 C L 83 28 H 184/124 H 94 PG Care Time/CCT Total # of Minutes Spent Total Time Spent with Patient: Total time spent is greater than 50% in coordination of care (as documented) at patient's floor/unit and/or counseling patient: Coding Level of Care Code 95703 Inpt Consult Level 5 Diagnoses Nephrolithiasis N20.0
--- NOTE | 2021-08-20 01:40 | Emergency Department Note ---
History of Present Illness General Chief Complaint: Abdominal Pain Stated Complaint: PAIN IN LOWER LT ABDOMEN Time Seen by Provider: 08/19/21 21:32 History of Present Illness Provider Complaint: abdominal pain Onset (ago): 1 day(s) Pain Consistency: intermittent Location: LLQ Migration to: no migration Severity: severe Maximum Pain Intensity: 9 Current Pain Intensity: 9 Quality: + stabbing and + sharp Relieved By: + nothing Exacerbated By: + nothing Context: + history of similar episodes (Feels like kidney stones); no foreign travel, no possible food poisoning, no sick contacts, no recent antibiotic use, no recent surgery/procedure or no recent injury Associated Symptoms: + nausea and + vomiting; no diarrhea, no fever, no chills, no constipation, no dysuria, no hematemesis, no hematochezia, no melena, no hematuria, no anorexia, no syncope, no headache, no neck pain, no back pain, no chest pain, no weakness, no breathing difficulty and no numbness Home Medications Medication Instructions Recorded Confirmed Type buspirone 10 mg tablet 10 mg PO BID 04/06/21 08/19/21 History multivitamin 1 tab PO DAILY 04/20/21 08/19/21 History Juice Plus-Gold Tab 1 tab PO BID 08/19/21 08/19/21 History Juice Plus-Fruit Tab 1 tab PO BID 08/19/21 08/19/21 History Juice Plus-Veggie Tab 1 tab PO BID 08/19/21 08/19/21 History acetaminophen 500 mg tablet 1,000 mg PO BID 08/19/21 08/19/21 History (Tylenol Extra Strength) lisinopril 2.5 mg tablet 2.5 mg PO DAILY 08/19/21 08/19/21 History meloxicam 15 mg tablet 15 mg PO DAILY 08/19/21 08/19/21 History wiaekcfompbm-isk-fijkd acid-vit 1 tab PO DAILY 08/19/21 08/19/21 History K-lycop 400 mcg-20 mcg-370 mcg tablet (One-A-Day Men's 50 Plus) sertraline 100 mg tablet 300 mg PO HS 08/19/21 08/19/21 History Allergies Allergy/AdvReac Type Severity Reaction Status Date / Time No Known Allergies Allergy Mild . Verified 08/19/21 21:17 Past Med/Surg History Medical History Anxiety History of nephrolithiasis Sleep apnea bipap nightly Ureterolithiasis Surgical History H/O lithotripsy History of colonoscopy History of laparoscopic appendectomy Laparoscopic appendectomy 04/06/2021 Dr. Thompson S/P ureteral stent placement hx Status post laser lithotripsy of ureteral calculus Family History Uncle Family history of diabetes mellitus Father FHx: stroke, Onset Age: 80 Social History Smoking Status: Never smoker Cigarettes Per Day: 1 ppd x30 years; Second Hand Exposure: No; Hx Alcohol Use: No Hx Substance Use: No Preferred Language: Libyan Communication Ability: Effective Home Teaching Grades 9 Thru 12 Teacher Required: No Beliefs That Will Affect Care: None Current Living Situation: Family Current Living Situation Comment: , daughter Feels Safe at Home: Yes Assistive Devices: Glasses Review of Systems A total of 10 systems reviewed and were otherwise negative Physical Exam Vital Signs: Vital Signs - 24 hr 08/19/21 20:02 08/19/21 21:08 08/19/21 21:10 Temperature 36.1 C L Temperature Source Temporal Artery Sc an Pulse Rate 83 81 78 Pulse Rate [Left F mulugeta] 82 Pulse Rate from Sp O2 Sensor 82 78 Pulse Rhythm [Left Finger] Regular Pulse Strength [Le ft Finger] Normal Respiratory Rate 28 H 21 16 Respiratory Effort / Characteristics Non-Labored Sponta neous Respiratory Depth Normal Respiratory Patter n Regular Blood Pressure 184/124 H Blood Pressure [Ri ght Arm] 188/90 H Blood Pressure Anat n 144 Blood Pressure Anat n [Right Arm] 122 Blood Pressure Pos ition [Right Arm] Lying Pulse Oximetry 94 99 98 Oxygen Delivery Me thod Room Air Room Air Sepsis Recent Feve r Within 48 Hours No Sepsis New/Unexpla ined Change in Men marlo Status No Sepsis Action Take n by Nursing No Action Required Oxygen Flow Rate - Titration Pulse Oximetry Pos t Tiitration 08/19/21 21:20 08/19/21 21:30 08/19/21 21:40 Temperature Temperature Source Pulse Rate 85 87 86 Pulse Rate [Left F mulugeta] Pulse Rate from Sp O2 Sensor 87 87 Pulse Rhythm [Left Finger] Pulse Strength [Le ft Finger] Respiratory Rate 19 14 18 Respiratory Effort / Characteristics Respiratory Depth Respiratory Patter n Blood Pressure Blood Pressure [Ri ght Arm] Blood Pressure Anat n Blood Pressure Anat n [Right Arm] Blood Pressure Pos ition [Right Arm] Pulse Oximetry 100 98 Oxygen Delivery Me thod Room Air Sepsis Recent Feve r Within 48 Hours Sepsis New/Unexpla ined Change in Men marlo Status Sepsis Action Take n by Nursing Oxygen Flow Rate - Titration Pulse Oximetry Pos t Tiitration 08/19/21 21:50 08/19/21 22:00 08/19/21 22:24 Temperature Temperature Source Pulse Rate 81 75 82 Pulse Rate [Left F mulugeta] Pulse Rate from Sp O2 Sensor 81 76 82 Pulse Rhythm [Left Finger] Pulse Strength [Le ft Finger] Respiratory Rate 20 20 22 Respiratory Effort / Characteristics Respiratory Depth Respiratory Patter n Blood Pressure Blood Pressure [Ri ght Arm] Blood Pressure Anat n Blood Pressure Anat n [Right Arm] Blood Pressure Pos ition [Right Arm] Pulse Oximetry 99 99 90 Oxygen Delivery Me thod Sepsis Recent Feve r Within 48 Hours Sepsis New/Unexpla ined Change in Men marlo Status Sepsis Action Take n by Nursing Oxygen Flow Rate - Titration Pulse Oximetry Pos t Tiitration 08/19/21 22:30 08/19/21 22:40 08/20/21 00:17 Temperature Temperature Source Pulse Rate 82 78 Pulse Rate [Left F mulugeta] 81 Pulse Rate from Sp O2 Sensor 82 79 Pulse Rhythm [Left Finger] Pulse Strength [Le ft Finger] Respiratory Rate 15 16 20 Respiratory Effort / Characteristics Respiratory Depth Respiratory Patter n Blood Pressure Blood Pressure [Ri ght Arm] 160/94 H Blood Pressure Anat n Blood Pressure Anat n [Right Arm] 116 Blood Pressure Pos ition [Right Arm] Pulse Oximetry 87 L 95 92 Oxygen Delivery Me thod Room Air Room Air Room Air Sepsis Recent Feve r Within 48 Hours Sepsis New/Unexpla ined Change in Men marlo Status Sepsis Action Take n by Nursing Oxygen Flow Rate - Titration 2 Pulse Oximetry Pos t Tiitration 95 Physical Exam: Physical Exam GENERAL: He is oriented to person, place, and time. He appears well-developed and well-nourished. He does not appear distressed. HENT: Exam performed. - Head: Normocephalic and atraumatic. - Right Ear: External ear normal. No mastoid tenderness. - Left Ear: External ear normal. No mastoid tenderness. - Mouth/Throat: The oropharynx is clear and moist. No trismus in the jaw. No dental abscesses or uvula swelling. No oropharyngeal exudate or tonsillar abscesses. EYES: Conjunctivae and EOM are normal. Pupils are equal, round, and reactive to light. Right eye exhibits no discharge. Left eye exhibits no discharge. No scleral icterus. NECK: Normal range of motion. Neck supple. No JVD present. No spinous process tenderness present. No carotid bruit present. No rigidity. No tracheal deviation and normal range of motion present. No Brudzinski's sign and no Kernig's sign noted. CV: Normal rate, regular rhythm, normal heart sounds and intact distal pulses. There is no peripheral edema. Palpable radial pulses bue. PULM/CHEST: Effort normal and breath sounds normal. No respiratory distress. No stridor. He has no wheezes. He has no rales. - Chest Wall: He exhibits no tenderness. ABD: The abdomen is soft and obese. Bowel sounds are normal. He has no distension. No mass is present. There is tenderness to palpation of the left lower quadrant. There is no rebound, no guarding, no Hurley's sign and no tenderness at McBurney's point. Rovsig negative. MUSC/SKEL: Normal range of motion. There is no peripheral edema, tenderness or deformity. LYMPH: No cervical adenopathy. NEURO: He is alert and oriented to person, place, and time. He has normal strength. No cranial nerve deficit or sensory deficit. Coordination and gait normal. GCS eye subscore is 4. GCS verbal subscore is 5. GCS motor subscore is 6. Cerebellar tests wnl. SKIN: Skin is warm and dry. He is not diaphoretic. PSYCH: He has a normal mood and affect. Behavior is normal. Judgment and thought content normal. Course Course 2131: The patient was evaluated in room B9. A complete history and physical exam was performed Cardiac monitoring: An order was placed for continuous cardiac monitoring. The monitor shows a rate of 80 with sinus rhythm 2329: Vital signs stable. Labs within normal limits. Imaging shows a left 5 mm stone at the UVJ with hydronephrosis and hydroureter. On reassessment the patient is still stating he has too much pain and he does not feel comfortable going home. Patient will be admitted for pain control and urology consultation to the [facility]ist team Dr. Blackmon will be notified. Administered Medications Discontinued Medications Sodium Chloride (Nss 1000ml) 1,000 mls @ 999 mls/hr IV .Q1H1M ONE Stop: 08/19/21 22:37 Last Infusion: 08/19/21 22:43 Dose: 0 mls/hr Documented by: [id number] Admin: 08/19/21 21:42 Dose: 999 mls/hr Documented by: [id number] Ioversol (Optiray 320 125ml) 119 ml IV ONCE ONE Stop: 08/19/21 22:20 Last Admin: 08/19/21 22:19 Dose: 119 ml Documented by: [id number] Ketorolac Tromethamine (Ketorolac Tromethamine 15 Mg/Ml Vial) 15 mg IV NOW STA Stop: 08/19/21 21:38 Last Admin: 08/19/21 21:45 Dose: 15 mg Documented by: [id number] Morphine Sulfate (Morphine Sulfate 4 Mg/Ml 1 Ml Carp\Vial) 4 mg IV NOW STA Stop: 08/19/21 23:37 Last Admin: 08/20/21 00:38 Dose: 4 mg Documented by: [id number] Ondansetron HCl (Ondansetron Inj 2 Mg/Ml 2 Ml Vial) 4 mg IV NOW STA Stop: 08/19/21 21:38 Last Admin: 08/19/21 21:43 Dose: 4 mg Documented by: [id number] Medical Decision Making Laboratory Data Result diagrams: 08/19/21 20:23 08/19/21 20:23 Lab Results 08/19/21 08/19/21 08/19/21 Range/Units 20:23 20:23 20:23 WBC 10.75 (4.8-10.8) K/uL RBC 4.80 (4.7-6.1) M/uL Hgb 16.0 (14.0-18.0) g/dL Hct 45.8 (42-52) % MCV 95.4 (80-100) fL MCH 33.3 (25-34) pg MCHC 34.9 (32-36) g/dL RDW Std Deviation 46.8 H (36.4-46.3) fL RDW Coeff of Giselle 13.5 (11.5-14.5) % Plt Count 218 (130-400) K/uL MPV 9.5 (7.4-10.4) fL Immature Gran % (Auto) 1.3 % Neut % (Auto) 58.9 % Lymph % (Auto) 28.9 % Sawyer % (Auto) 8.2 % Eos % (Auto) 2.2 % Baso % (Auto) 0.5 % Neut # (Auto) 6.33 (1.4-6.5) K/uL Lymph # (Auto) 3.11 (1.2-3.4) K/uL Sawyer # (Auto) 0.88 H (0.11-0.59) K/uL Eos # (Auto) 0.24 (0-0.5) K/uL Baso # (Auto) 0.05 (0-0.2) K/uL Immature Gran # (Auto) 0.14 H (0.00-0.02) K/uL Sodium 136 (136-145) mmol/L Potassium 4.2 (3.5-5.1) mmol/L Chloride 106 (98-107) mmol/L Carbon Dioxide 23 (21-32) mmol/L Anion Gap 7.0 (3-11) BUN 24 H (7-18) mg/dl Creatinine 1.28 (0.6-1.4) mg/dl Est Cr Clr Drug Dosing 82.8 ml/min Est GFR ( Amer) 68.6 ml/min Est GFR (Non-Af Amer) 59.2 ml/min BUN/Creatinine Ratio 18.8 (10-20) Glucose 94 (70-99) mg/dl Calcium 9.5 (8.5-10.1) mg/dl Total Bilirubin 0.4 (0.2-1) mg/dl AST 23 (15-37) U/L ALT 34 (12-78) U/L Alkaline Phosphatase 118 H (45-117) U/L Total Protein 9.0 H (6.4-8.2) gm/dl Albumin 4.2 (3.4-5.0) gm/dl Globulin 4.8 H (2.5-4.0) gm/dl Albumin/Globulin Ratio 0.9 (0.9-2) Lipase 285 (73-393) U/L Urine Color Yellow Urine Appearance Clear (Clear) Urine pH 5.5 (4.5-7.5) Ur Specific [place] 1.021 (1.000-1.030) Urine Protein Negative (Negative) Urine Glucose (UA) Negative (Negative) Urine Ketones Negative (Negative) Urine Blood 2+ H (Negative) Urine Nitrite Negative (Negative) Urine Bilirubin Negative (Negative) Urine Urobilinogen Negative (Negative) Ur Leukocyte Esterase Negative (Negative) Urine WBC (Auto) 1-5 (0-5) /hpf Urine RBC (Auto) 0-4 (0-4) /hpf U Hyaline Cast (Auto) 0 (0-5) /lpf U Epithel Cells (Auto) 0-5 (0-5) /lpf Urine Bacteria (Auto) Negative (Negative) COVID-19 Eval Order 08/20/21 Range/Units 00:07 WBC (4.8-10.8) K/uL RBC (4.7-6.1) M/uL Hgb (14.0-18.0) g/dL Hct (42-52) % MCV (80-100) fL MCH (25-34) pg MCHC (32-36) g/dL RDW Std Deviation (36.4-46.3) fL RDW Coeff of Giselle (11.5-14.5) % Plt Count (130-400) K/uL MPV (7.4-10.4) fL Immature Gran % (Auto) % Neut % (Auto) % Lymph % (Auto) % Sawyer % (Auto) % Eos % (Auto) % Baso % (Auto) % Neut # (Auto) (1.4-6.5) K/uL Lymph # (Auto) (1.2-3.4) K/uL Sawyer # (Auto) (0.11-0.59) K/uL Eos # (Auto) (0-0.5) K/uL Baso # (Auto) (0-0.2) K/uL Immature Gran # (Auto) (0.00-0.02) K/uL Sodium (136-145) mmol/L Potassium (3.5-5.1) mmol/L Chloride (98-107) mmol/L Carbon Dioxide (21-32) mmol/L Anion Gap (3-11) BUN (7-18) mg/dl Creatinine (0.6-1.4) mg/dl Est Cr Clr Drug Dosing ml/min Est GFR ( Amer) ml/min Est GFR (Non-Af Amer) ml/min BUN/Creatinine Ratio (10-20) Glucose (70-99) mg/dl Calcium (8.5-10.1) mg/dl Total Bilirubin (0.2-1) mg/dl AST (15-37) U/L ALT (12-78) U/L Alkaline Phosphatase (45-117) U/L Total Protein (6.4-8.2) gm/dl Albumin (3.4-5.0) gm/dl Globulin (2.5-4.0) gm/dl Albumin/Globulin Ratio (0.9-2) Lipase (73-393) U/L Urine Color Urine Appearance (Clear) Urine pH (4.5-7.5) Ur Specific [place] (1.000-1.030) Urine Protein (Negative) Urine Glucose (UA) (Negative) Urine Ketones (Negative) Urine Blood (Negative) Urine Nitrite (Negative) Urine Bilirubin (Negative) Urine Urobilinogen (Negative) Ur Leukocyte Esterase (Negative) Urine WBC (Auto) (0-5) /hpf Urine RBC (Auto) (0-4) /hpf U Hyaline Cast (Auto) (0-5) /lpf U Epithel Cells (Auto) (0-5) /lpf Urine Bacteria (Auto) (Negative) COVID-19 Eval Order Covid19 at [facility] Imaging Data Radiologist's Impression: Preliminary Findings Only See Final Report For Complete Findings CT ABDOMEN & PELVIS With Contrast: Comparison to April 06, 2021. There is moderate left hydronephrosis and hydroureter down to a 5 mm calculus at the left ureterovesicular junction. There is also a 10 mm nonobstructive calyceal calculus on the left. The right kidney is unremarkable. The urinary bladder is mostly decompressed and extends partially into the right inguinal hernia similar to previous. There is fatty infiltration of the liver and hepatomegaly measuring 20 cm craniocaudad. No focal liver lesion is seen. The gallbladder, pancreas, spleen, and adrenal glands are unremarkable. Bowel loops are nondilated. No acute inflammatory process is seen involving the bowel. Mild to moderate degenerative changes throughout the thoracic and lumbar spine. No acute fracture or subluxation is seen. Radiologist: Vlad Blackmon MD Study ready at 22:35 and initial results transmitted at 23:03 *This report constitutes a preliminary interpretation only. Non-acute findings felt to be unr MDM Narrative Vital signs stable. Labs within normal limits. Imaging shows a left 5 mm stone at the UVJ with hydronephrosis and hydroureter. On reassessment the patient is still stating he has too much pain and he does not feel comfortable going home. Patient will be admitted for pain control and urology consultation to the [facility] hospitalist team Dr. Blackmon will be notified. Impression & Plan Hydronephrosis with renal calculous obstruction Discharge Plan Visit Data Chief Complaint: Abdominal Pain Stated Complaint: PAIN IN LOWER LT ABDOMEN Discharge Problem: Hydronephrosis with renal calculous obstruction Patient Disposition: Admitted As Inpatient Forms Stand Alone Forms: My [facility] Prescriptions Prescriptions: No Action multivitamin Tablet 1 tab PO DAILY RF: 0 meloxicam 15 mg Tablet 15 mg PO DAILY RF: 0 sertraline 100 mg Tablet 300 mg PO HS RF: 0 acetaminophen [Tylenol Extra Strength] 500 mg Tablet 1,000 mg PO BID RF: 0 lisinopril 2.5 mg Tablet 2.5 mg PO DAILY RF: 0 One-A-Day Men's 50 Plus 400-20-370 mcg Tablet 1 tab PO DAILY RF: 0 Juice Plus-Gold Tab 1 tab PO BID RF: 0 Juice Plus-Fruit Tab 1 tab PO BID RF: 0 Juice Plus-Veggie Tab 1 tab PO BID RF: 0 buspirone 10 mg Tablet 10 mg PO BID RF: 0 Referrals Referrals: Terri Ann DO [Primary Care Provider] -
[2021-08-20] MEDS ORDERED: KETOROLAC TROMETHAMINE 15 MG/ML VIAL IV PRN (02:31)
[2021-08-20] MEDS ORDERED: ONDANSETRON INJ 2 MG/ML 2 ML VIAL IV PRN (02:31)
[2021-08-20] MEDS ORDERED: MoRPHine SULFATE 2 MG/ML CARP IV PRN (02:31)
[2021-08-20] MEDS ORDERED: TAMSULOSIN HCL 0.4 MG CAP PO ONE (02:31)
[2021-08-20] MEDS ORDERED: ACETAMINOPHEN 325 MG TAB PO PRN (02:31)
[2021-08-20] MEDS: LACTATED RINGER'S 1,000 ML IV SCH ×2 (02:57→09:14)
--- NOTE | 2021-08-20 08:13 | CT Scan Report ---
CT OF THE ABDOMEN AND PELVIS WITH CONTRAST CLINICAL HISTORY: Left lower quadrant abdominal pain. COMPARISON STUDY: CT of the abdomen and pelvis April 06, 2021. TECHNIQUE: Following IV administration of 119 mL of Optiray, axial images of the abdomen and pelvis w ere obtained from the lung bases to the proximal femurs. Images were reviewed in the axial, sagittal, and coronal planes. IV contrast was administered without complication. Automated exposure control w as utilized for the study. A dose lowering technique was utilized adhering to the principles of MADELIN Romero. CT DOSE: 2002.72 mGy.cm FINDINGS: 5 mm left ureterovesical junction calculus results in moderate left hydronephrosis. Cluster ed calculi within lower pole left kidney measure up to 6 mm. Left nephrogram is delayed with perineph esme stranding. Probable hepatic steatosis is noted. There is mild hepatosplenomegaly. The adrenal gla nds and pancreas are unremarkable. There is no evidence for a bowel obstruction. The caliber and wall thickness of small and large bowel are normal. Sigmoid diverticulosis is noted without evidence for diverticulitis. Bilateral inguinal hernias are present. Right anterior aspect of the bladder extends into the right inguinal hernia, as before. No acute fracture or suspicious lesion is identified withi n the visualized skeletal structures. IMPRESSION: 1. 5 mm left ureterovesical junction calculus which results in moderate left hydronephrosis with jalen yed nephrogram and perinephric stranding and fluid. 2. Left-sided nephrolithiasis. 3. No bowel obstruction. 4. Bilateral inguinal hernias. Right inguinal hernia contains a portion of the bladder, as before. ACT 112: Negative or not required by law. Electronically signed by: Billy Vincent M.D. 08/20/2021 8:12 AM
--- NOTE | 2021-08-20 08:48 | XRay Report ---
KUB CLINICAL HISTORY: Left ureteral stone. FINDINGS: 4 AP supine abdominal radiographs are compared to study dated 07/26/2019 and correlated with abdominal CT dated 08/19/2021. Excreted IV contrast is shown within the renal collecting systems and bladder. This shows left-sided hydronephrosis. A 5 mm calculus projects over the left vesicoureteral junction. This is unchanged from yesterday's CT scan. No additional calculi are clearly seen project ing over either kidney, although this is not well evaluated due to the presence of contrast within th e renal collecting systems. There is no bowel obstruction. The bony structures appear intact. IMPRESSION: 1. A 5 mm calculus projects over the left vesicoureteral junction, unchanged from yesterday's CT scan . 2. Contrast fills the renal collecting systems and bladder, and shows left-sided hydronephrosis. 3. Contrast within the renal collecting system obscures evaluation for additional renal calculi. Electronically signed by: Jaylan Smith M.D. 08/20/2021 11:32 AM
[2021-08-20] MEDS ORDERED: busPIRone 5 MG TAB PO SCH (09:00)
[2021-08-20] MEDS ORDERED: lisinopril 2.5 MG TAB PO SCH (09:00)
--- NOTE | 2021-08-20 09:50 | Urology Progress Note ---
Date of Service August 20, 2021 Assessment & Plan (1) Left ureteral stone: (2) Renal colic on left side: Plan: 61yo M admitted with intractable left flank pain secondary to a 5mm left UVJ stone with hydronephrosis - Plan of care reviewed with , on-call urologist - KUB today notes the 5 mm calculus projecting over the left vesicoureteral junction, unchanged from yesterday's CT scan. - He is afebrile, non-toxic appearing. - Labs reviewed, Wbc and creatinine normal. - UA on admission with 2+ blood, otherwise unremarkable. - Discussed options for acute stone management with cystoscopy and stent placement. - Discussed outpatient options for conservative measures with max expulsion medical therapy and symptom control. - Discussed stone passage rates and possibility of spontaneous passage given stone size and location. - Discussed outpatient ESWL - Risks/benefits of all procedures discussed - Patient prefers trial of passage with possible outpatient ESWL next week if he does not pass the stone before then - No acute intervention planned today - Ok to have a diet back - Reviewed in detail signs/symptoms that would warrant return to the hospital, patient verbalized an understanding. - Recommend home with Tamsulosin, prn analgesics, and prn antiemetics. - Ok for discharge from perspective - Will follow-up outpatient with Urology service next week to arrange elective procedure if indicated - Patient agreeable to above plan, all questions were answered. Admission and Anticipated Discharge Date Admission Date: August 20, 2021 Supervising Physician Co-Signing Physician Notes Discussed patient with NICK. Agree with plan. Recommend medical expulsive therapy based on size and location of stone and no concern for infection. Outpatient urology follow up. Subjective Pt examined at bedside this AM. Awake, resting in bed on arrival. He denies any stone passage. Has been NPO. Still with mild left flank discomfort, rates pain 1/10 at present. No fevers or chills. Denies nausea or vomiting. Denies hematuria and dysuria. Feels he is emptying his bladder well. Review of Systems Constitutional: as per Subjective / HPI Gastrointestinal: as per Subjective / HPI Genitourinary: + as per Subjective / HPI Physical Exam Constitutional: well developed and well nourished; no acute distress and not ill appearing Respiratory: normal respiratory effort and able to speak in complete sentences; no labored breathing and no audible wheezes Gastrointestinal (Abdomen): Inspection/Auscultation: abdomen normal to inspection; abdomen not distended Musculoskeletal: Head/Neck/Chest: normocephalic Skin: No visible rashes or lesions to exposed skin areas Neurologic: moves all extremities and awake Psychiatric: Orientation: alert, oriented x 3 and cooperative Results & Data ([facility]) Vital Signs (Past 12 Hours) Vital Signs Temp Pulse Pulse Resp BP Pulse Ox 08/20/21 07:55 36.9 C 75 18 152/77 H 93 08/20/21 03:10 65 18 93 08/20/21 03:04 36.9 C 80 20 147/84 H 93 08/20/21 01:44 76 20 145/76 H 95 08/20/21 00:17 81 20 160/94 H 92 08/19/21 22:40 78 16 95 08/19/21 22:30 82 15 87 L 08/19/21 22:24 82 22 90 08/19/21 22:00 75 20 99 08/19/21 21:50 81 20 99 PG Care Time/CCT Total # of Minutes Spent Total Time Spent with Patient: Total time spent is greater than 50% in coordination of care (as documented) at patient's floor/unit and/or counseling patient: Coding Level of Care Code None Diagnoses Left ureteral stone N20.1 Renal colic on left side N23
--- NOTE | 2021-08-20 15:28 | Discharge Summary ---
Date of Service August 20, 2021 Admission HPI Per Admitting Provider Abraham Gomez is a pleasant 61yo male presenting with left sided flank and abdominal pain. Pain began suddenly this afternoon after a nap. Left lower abdominal discomfort, 10/10 in severity. Pain progressed throughout the evening. Associated with nausea and 8-9 episodes of non-bloody/non-bilious vomiting and dry heaving, chills. He denies fever, chest pain, palpitations, diarrhea. Has some baseline SOB which is stable and unchanged. No additional complaints at this time. He is urinating without difficulty. ER Course: Toradol 15mg IV, Morphine 4mg IV, Zofran 4mg IV, NSS Principal Diagnosis Nephrolithiasis with hydronephrosis Discharge Exam Constitutional WD/WN, vitals as above Eyes + anicteric sclerae Neck trachea midline, no thyromegaly Respiratory normal respiratory effort, lungs clear to auscultation Cardiovascular RRR, no murmur, no edema Chest (Breasts) Chest: normal inspection of chest Gastrointestinal (Abdomen) normal bowel sounds, soft, nontender, no hepatosplenomegaly Musculoskeletal Extremities: extremities normal to inspection; no cyanosis and no clubbing Skin no rashes, warm and dry Neurologic moves all extremities and awake; no focal motor deficits Psychiatric A+Ox3, euthymic affect Lymphatic no lymphedema Discharge Data Allergies Allergy/AdvReac Type Severity Reaction Status Date / Time No Known Allergies Allergy Mild . Verified 08/19/21 21:17 Consultations 08/19/21 23:36 ED Decision to Admit Stat 08/20/21 02:31 Consult Urology Routine Ordered Studies 08/19/21 21:37 CT abd pelvis IV con only Urgent Hospital Course (1) Nephrolithiasis: 61yo male presenting with left sided nephrolithiasis with hydroureteronephrosis. Patient with considerable pain, 8/10 after receiving IV Dilaudid. Has history of stones, has seen Urology in the past. Stone is 5mm at left ureterovesicular junction Pain now resolved with IVFs, IV pain meds N/V resolved and tolerating reg diet KUB on day of dc still shows stone present, but now pain resolved, may have passed it into bladder dc to home on Flomax, oxycodone prn, Zofran prn, and strain urine stay hydrated f/u with Urol next week for stone management (2) Anxiety: Chronic. Stable -Continue Sertaline and Buspirone at home doses (3) ЮЛИЯ (obstructive sleep apnea): Chronic. Patient reports compliance with his home BiPAP - 17/09 qHS -Nocturnal BiPAP Code - Full Dispo -dc to home Total Time Total Time Spent Total Time Spent (In Minutes): 35 min Discharge Plan Discharge Items Patient Disposition: Home - Self-Care Reason For Visit: NEPHROLITHIASIS, LEFT HYDRONEPHROSIS Discharge Diagnosis: Nephrolithiasis Condition on Discharge: Good Activity: Resume your previous activity Non-emergency contact: Primary Care Provider and Urologist Call non-emergency contact if: you have any medication questions, your symptoms worsen, your pain is not controlled, your pain is worsening, your pain is unusual for you, you have a fever and your temperature is above 101 Follow-up/Referrals: Zion Cardenas MD [Physician] - (Follow up within 1 week-Dr. Cardenas'/[facility] office should be contacting you with your appointment date and time.) Terri Ann DO [Primary Care Provider] - (Follow up within 1-2 weeks.) Diet: Regular Addtl Attending Provider Instructions: Please continue the Flomax once daily at bedtime. While on this medication, make sure you don't stand up too quickly and start walking as it can cause lightheadedness. You can take Percocet as needed if severe pain returns. Please strain your urine at home to try to catch the stone when it passes. Follow up with the Urologist in 1 week. Pending Studies at Discharge: No Stand-Alone Forms: My [facility] Medications and DC Order Prescriptions: New oxycodone-acetaminophen [Percocet] 5-325 mg tablet 1 tab PO Q4H PRN (Reason: severe pain) Qty: 10 RF: 0 tamsulosin 0.4 mg Capsule 0.4 mg PO HS Qty: 14 RF: 0 ondansetron 4 mg tablet,disintegrating 4 mg PO Q8H PRN (Reason: nausea and vomiting) Qty: 9 RF: 0 Continued multivitamin Tablet 1 tab PO DAILY RF: 0 meloxicam 15 mg Tablet 15 mg PO DAILY RF: 0 sertraline 100 mg Tablet 300 mg PO HS RF: 0 acetaminophen [Tylenol Extra Strength] 500 mg Tablet 1,000 mg PO BID RF: 0 lisinopril 2.5 mg Tablet 2.5 mg PO DAILY RF: 0 One-A-Day Men's 50 Plus 400-20-370 mcg Tablet 1 tab PO DAILY RF: 0 Juice Plus-Gold Tab 1 tab PO BID RF: 0 Juice Plus-Fruit Tab 1 tab PO BID RF: 0 Juice Plus-Veggie Tab 1 tab PO BID RF: 0 buspirone 10 mg Tablet 10 mg PO BID RF: 0 Discharge Orders: Discharge Order (Routine); Ordered 08/20/21 Ordered By: Smita Andres Admission Data Admit Date/Time: 08/20/21 00:14 Attending Provider: Smita Andres Admit Provider: Zulema Blackmon Primary Care Provider: Terri Ann Other Providers: Zulema Blackmon ; Zion Cardenas Other Interventions: Discharge Summary Assessment (RN) Last Done: 08/20/21 15:07 Coding Level of Care Code D/C DAY MANAGEMENT >30 MINS Diagnoses Nephrolithiasis N20.0 Anxiety F41.9 ЮЛИЯ (obstructive sleep apnea) G47.33
[2021-08-20] MEDS ORDERED: TAMSULOSIN HCL 0.4 MG CAP PO SCH (21:00)
[2021-08-20] MEDS ORDERED: SERTRALINE HCL 100 MG TABLET PO SCH (21:00)
[2021-08-25 22:31] LABS: Component 2 DNR; Source KIDNEY STONE
== END 2021-08-20 16:15 | disposition home or self-care (01) | DRG 694 ==
LOC: ED 19:59 → INTOOBSV 08-20 00:14 → 3N 08-20 00:14 → SUATTDRO 08-20 00:14 → 3N 08-20 02:15